=== PATIENT | female | born 1955 | race Caucasian/White ===

== ENCOUNTER → 2018-06-27 15:26 | Outpatient (CLI) | payer OTHER, SELFPAY ==
--- NOTE | 2018-06-27 15:29 | DI.RAD.S_ITS ---
PROCEDURE: XR FOOT LT MIN 3V INDICATIONS: Lt foot pain TECHNIQUE: 3 views of the foot were acquired. COMPARISON: None. FINDINGS: Bones: No fractures or dislocations. No suspicious bony lesions. Soft tissues: No tibiotalar joint effusion. Achilles tendon appears normal. IMPRESSION: No trauma found. Source of current symptoms is not seen. Dictated by: Isaac Anderson M.D. on 06/27/2018 at 16:04 Approved by: Isaac Anderson M.D. on 06/27/2018 at 16:05
== END ==
PROVIDERS: Visit Provider Physician Assistant
DX: M79.672 Pain in left foot (principal)
CPT/HCPCS: 73630

== ENCOUNTER → 2020-01-12 10:48 | Outpatient (CLI) | payer OTHER, SELFPAY ==
[2020-01-12 11:57] LABS: Add Manual Diff / Slide Review NO; Basophils Absolute Auto 100 /uL (0-100); Basophils Percent Auto 0.9 % (0-2); Eosinophils Absolute Auto 200 /uL (0-450); Eosinophils Percent Auto 4.2 % (2-4); Hematocrit 41.6 % (36-46); Hemoglobin 14.5 g/dL (12.0-16.0); Lymphocytes Absolute Auto 1200 /uL (1100-4500); Mean Corpuscular HGB Conc 34.9 % (30-36); Mean Corpuscular Hemoglobin 31.6 PG (26-34); Mean Corpuscular Volume 90.8 fL (80-100); Monocytes Absolute Auto 500 /uL (0-900); Monocytes Percent Auto 9.3 % (3-14); Neutrophils Absolute Auto 3700 /uL (1500-7000); Neutrophils Percent Auto 64.6 % (50-75); Platelet Count 305 X10^3/uL (150-400); Red Blood Cell Count 4.58 X10^6/uL (4.0-5.2); Red Cell Distribution Width 12.9 % (11.6-14.8); White Blood Cell Count 5.8 X10^3/uL (4.5-11.0)
[2020-01-12 12:04] LABS: BUN Creatinine Ratio 25.7 (6-22); Blood Urea Nitrogen 18 mg/dL (7-17); Calcium 9.7 mg/dL (8.4-10.2); Carbon Dioxide 30 mmol/L (22-32); Chloride 103 mmol/L (98-107); Estimated Glomerular Filt Rate > 60.0 mL/min (>60); Glucose 95 mg/dL (80-110); HEMOLYSIS < 15 (0-50); Potassium 4.3 mmol/L (3.4-5.1); Sodium 140 mmol/L (137-145)
== END ==
PROVIDERS: PCP Family Medicine; Referring Provider Surgery; Visit Provider Surgery
DX: K57.92 Diverticulitis of intestine, part unspecified, without perforation or abscess without bleeding (principal)
CPT/HCPCS: 36415; 80048; 85025

== ENCOUNTER → 2020-01-19 09:54 | Outpatient (CLI) | payer OTHER, SELFPAY ==
--- NOTE | 2020-01-19 09:55 | DI.CT.S_ITS ---
PROCEDURE: CT ABDOMEN PELVIS W CON INDICATIONS: rule out diverticulitis TECHNIQUE: After the administration of intravenous contrast, 5 mm thick sections acquired from the diaphragm to the symphysis. 5 mm coronal and sagittal reformats were acquired. For radiation dose reduction, the following was used: automated exposure control, adjustment of mA and/or kV according to patient size. COMPARISON: [facility], RG, CT ABDOMEN/PELVIS WITH CONTRAST, 12/01/2019, 17:32. FINDINGS: Image quality: Excellent. ABDOMEN: Lung bases: Lung bases are clear. Heart size is normal. Solid organs: Liver is normal in size and enhancement. Gallbladder is surgically absent. Biliary system is mildly dilated. Pancreas enhances normally. Spleen is normal in size and enhancement. No adrenal nodules. Kidneys demonstrate normal size and enhancement, without hydronephrosis. Peritoneum and bowel: There are scattered colonic diverticula in descending and sigmoid colon. Bowel loops demonstrate normal wall thickness and caliber. No free fluid or air. Nodes and vessels: No retroperitoneal or mesenteric adenopathy by size criteria. Aorta and inferior vena cava are normal in size. Miscellaneous: No ventral hernias. PELVIS: Genitourinary: Bladder wall thickness is normal. Uterus is normal. No adnexal mass. Miscellaneous: No inguinal hernias or adenopathy. Bones: No suspicious bony lesions. No vertebral body compression fractures. IMPRESSION: 1. Diverticulosis without acute diverticulitis. 2. Mild intrahepatic biliary dilation is probably related to cholecystectomy. Please correlate with serum bilirubin. Dictated by: Jared Galindo M.D. on 01/19/2020 at 14:42 Approved by: Jared Galindo M.D. on 01/19/2020 at 18:49
== END ==
PROVIDERS: PCP Family Medicine; Referring Provider Family Medicine; Visit Provider Surgery
DX: K57.30 Diverticulosis of large intestine without perforation or abscess without bleeding (principal); Z90.49 Acquired absence of other specified parts of digestive tract
CPT/HCPCS: 74177; Q9967

== ENCOUNTER 2022-09-06 23:27 | Emergency (ER) | payer MEDICARE, OTHER, SELFPAY ==
[2022-09-06 23:41] VITALS: BP 164/75; PULSE 88; RESP 22; TEMP 37.2; O2SAT 95; BMI 21.5
[2022-09-06 23:46] VITALS: PULSE 81; O2SAT 96
[2022-09-07] VITALS (131 sets, daily range): BP systolic 85–125; BP diastolic 46–60; PULSE 70–108; RESP 13–40; O2SAT 91–99
[2022-09-07] LABS: Add Manual Diff / Slide Review NO; Basophils Absolute Auto 0 /uL (0-100); Basophils Percent Auto 0.3 % (0-2); Eosinophils Absolute Auto 100 /uL (0-450); Eosinophils Percent Auto 0.8 % (2-4); Hematocrit 40.2 % (36-46); Hemoglobin 14.2 g/dL (12.0-16.0); Lymphocytes Absolute Auto 1200 /uL (1100-4500); Lymphocytes Percent Auto 13.2 % (25-40); Mean Corpuscular HGB Conc 35.5 % (30-36); Mean Corpuscular Volume 90.1 fL (80-100); Monocytes Absolute Auto 1000 /uL (0-900); Neutrophils Absolute Auto 6900 /uL (1500-7000); Neutrophils Percent Auto 74.7 % (50-75); Platelet Count 247 X10^3/uL (150-400); Red Blood Cell Count 4.46 X10^6/uL (4.0-5.2); Red Cell Distribution Width 12.7 % (11.6-14.8); White Blood Cell Count 9.3 X10^3/uL (4.5-11.0)
[2022-09-07 00:05] LABS: Alanine Aminotransferase 46 IU/L (<35); Albumin 4.2 g/dL (3.5-5.0); Albumin Globulin Ratio 1.4 (1.0-2.8); Alkaline Phosphatase 111 U/L (38-126); Aspartate Aminotransferase 47 IU/L (14-36); BUN Creatinine Ratio 13.3 (6-22); Bilirubin Total 0.5 mg/dL (0.2-1.3); Blood Urea Nitrogen 10 mg/dL (7-17); Calcium 8.8 mg/dL (8.4-10.2); Carbon Dioxide 26 mmol/L (22-32); Chloride 101 mmol/L (98-107); Estimated Glomerular Filt Rate > 60 mL/min (>60); Globulin 3.1 g/dL (1.7-4.1); Glucose 103 mg/dL (80-110); HEMOLYSIS 24 (0-50); Lipase 80 U/L (23-300); Potassium 4.2 mmol/L (3.4-5.1); Sodium 135 mmol/L (137-145); Total Protein 7.3 g/dL (6.3-8.2)
--- NOTE | 2022-09-07 00:21 | ED_ITS ---
HPI - General Adult <Apryl Lara MD - Last Filed: 09/07/22 05:39> General Chief complaint: Abdominal Pain Stated complaint: Lower abd. pain Time Seen by Provider: 09/06/22 23:56 Source: patient Mode of arrival: Ambulatory History of Present Illness HPI narrative: 67-year-old woman with a history of pacer defibrillator, episodes of ventricular tachycardia for which she is shocked or paced out of, scheduled for a stress test later next week presents complaining of lower abdominal pain. She notes that on the she had an extra-strength flu shot and felt somewhat achy and unwell for approximately 24 hours. Was doing well on the by the was complaining of general malaise, body aches increasing lower abdominal pain and difficulty in starting her urine stream. No back pain chest pain, cough, palpitations. She does not describe overt nausea or vomiting, she had diarrhea on the but that has not continued, no constipation. She notes that she has had 2 episodes of diverticulitis in the past and this does feel somewhat similar. She is not complaining of flank pain, dysuria or frequency. Related Data Home Medications Medication Instructions Recorded Confirmed cholecalciferol (vitamin D3) 100 8,000 unit PO DAILY 01/12/20 01/12/20 mcg (4,000 unit) capsule vitamin B complex 1 tab PO DAILY 01/12/20 01/12/20 Previous Rx's Medication Instructions Recorded ciprofloxacin HCl 500 mg tablet 500 mg PO Q12H diverticulitis #28 01/13/20 (Cipro) tabs metronidazole 500 mg tablet 500 mg PO Q8H diverticulitis #42 01/13/20 (Flagyl) tabs ondansetron 4 mg disintegrating 4 mg PO Q4H PRN nausea and 01/25/20 tablet vomiting #30 tabs Allergies Allergy/AdvReac Type Severity Reaction Status Date / Time Iodinated Contrast Media Allergy Severe questionable Verified 09/07/22 08:53 anaphylaxis, chest pain, v tach Sulfa (Sulfonamide Allergy Intermediate rash Verified 09/07/22 05:09 Antibiotics) [SULFA (SULFONAMIDE ANTIBIOTICS)] Review of Systems <Apryl Lara MD - Last Filed: 09/07/22 05:39> Review of Systems Narrative: Remainder of complete review of systems is otherwise unremarkable except for that included in the HPI. Patient History <Apryl Lara MD - Last Filed: 09/07/22 05:39> Social History Smoking Status: Never smoker alcohol intake: current (1 glass of wine or 2 per week) substance use type: does not use Smoking Status: Never smoker alcohol intake frequency: holidays/special occasions only Substance Use Type: does not use Exam <Apryl Lara MD - Last Filed: 09/07/22 05:39> Initial Vital Signs Initial Vital Signs: Vital Signs Temperature 98.9 F 09/06/22 23:41 Pulse Rate 88 09/06/22 23:41 Respiratory Rate 22 09/06/22 23:41 Blood Pressure 164/75 H 09/06/22 23:41 Pulse Oximetry 95 09/06/22 23:41 Oxygen Delivery Method 09/06/22 23:41 General: Healthy appearing, in no acute distress. Able to give a complete and coherent history. Well-nourished well-developed HEENT: Moist mucous membranes, normal sclera with reactive pupils, Neck: No JVD, supple Respiratory: Lungs are clear to auscultation, no wheezing no rales no rhonchi. Full and symmetrical air movement Cardiac: Regular rate and rhythm no murmurs no bruits Abdomen: Soft, tender in the entire lower abdomen without rebound or guarding. Good bowel tones, no flank pain Skin: Warm and dry, no rashes Neurologic: Grossly neurologically intact with no obvious asymmetries or abnormalities Extremities: No trauma, well perfused Psych: Cooperative, appropriate insight and affect Bedside ultrasound shows bladder volume currently at less than 20 cc <Gail Hassan DO - Last Filed: 09/07/22 19:24> Initial Vital Signs Initial Vital Signs: Vital Signs Temperature 98.9 F 09/06/22 23:41 Pulse Rate 88 09/06/22 23:41 Respiratory Rate 22 09/06/22 23:41 Blood Pressure 164/75 H 09/06/22 23:41 Pulse Oximetry 95 09/06/22 23:41 Oxygen Delivery Method 09/06/22 23:41 Procedures <Apryl Lara MD - Last Filed: 09/07/22 05:39> Central Line Placement Right IJ: Time of procedure: 04:34 Patient Placed on Monitor/Pulse Ox: Yes Prep: mask, gown, gloves and other Central Line Prep: Chlorhexidine scrub Local Anesthetic: lidocaine 1% Amount of anesthesia used (mL): 3 Ultrasound Used for Placement: Yes Central Line Lumen Inserted: triple Post Procedure: sutured in place, good blood return, all ports aspirated, flushed, capped and sterile dressing applied Post Procedure X-Ray: tip of catheter in good position and no pneumothorax seen Patient Tolerated Procedure: Well Complications: none Course <Apryl Lara MD - Last Filed: 09/07/22 05:39> Orders Ordered: Discontinued Medications Diphenhydramine HCl (Diphenhydramine 50 Mg/Ml Vial) 25 mg IV NOW ONE Stop: 09/07/22 01:36 Last Admin: 09/07/22 01:43 Dose: 25 mg Documented By: GILBERT Famotidine (Famotidine 20 Mg/2 Ml Vial) 20 mg IV NOW ONE Stop: 09/07/22 01:36 Last Admin: 09/07/22 01:44 Dose: 20 mg Documented By: GILBERT Heparin Sodium (Porcine) (Heparin 5,000 Unit/Ml Vial) 4,000 unit IV NOW ONE Stop: 09/07/22 05:16 Last Admin: 09/07/22 05:28 Dose: 4,000 unit Documented By: AMANDA Hydromorphone HCl (Hydromorphone 0.5 Mg Inj) 0.5 mg IV Q15MIN PRN PRN Reason: Pain, Last Admin: 09/07/22 00:38 Dose: 0.5 mg Documented By: ARIS Sodium Chloride (Normal Saline 0.9%) 1,000 mls @ 1,000 mls/hr IV BOLUS ONE Stop: 09/07/22 01:30 Last Infusion: 09/07/22 03:07 Dose: 0 mls/hr Documented By: Admin: 09/07/22 00:39 Dose: 1,000 mls/hr Documented By: ARIS Sodium Chloride (Normal Saline 0.9%) 1,000 mls @ 1,000 mls/hr IV BOLUS ONE Stop: 09/07/22 02:34 Last Infusion: 09/07/22 02:51 Dose: 0 mls/hr Documented By: Admin: 09/07/22 01:58 Dose: 1,000 mls/hr Documented By: ARIS Sodium Chloride (Normal Saline 0.9%) 1,000 mls @ 150 mls/hr IV CONT DIAN Last Infusion: 09/07/22 09:30 Dose: 150 mls/hr Documented By: Admin: 09/07/22 08:50 Dose: 150 mls/hr Documented By: Infusion: 09/07/22 08:50 Dose: 150 mls/hr Documented By: Infusion: 09/07/22 06:49 Dose: 150 mls/hr Documented By: Admin: 09/07/22 02:13 Dose: 150 mls/hr Documented By: ARIS Amiodarone HCl/Dextrose (Nexterone) 150 mg in 100 mls @ 600 mls/hr IV NOW ONE; Protocol Stop: 09/07/22 02:06 Last Infusion: 09/07/22 02:15 Dose: 0 mls/hr Documented By: Admin: 09/07/22 02:02 Dose: 600 mls/hr Documented By: ARIS Amiodarone HCl/Dextrose (Nexterone) 360 mg in 200 mls @ 33.333 mls/hr IV NOW ONE; Protocol Stop: 09/07/22 07:56 Last Titration: 09/07/22 08:17 Dose: 0 mls/hr, 0 mls/hr Documented By: Admin: 09/07/22 02:16 Dose: 33.333 mls/hr, 33.33 mls/hr Documented By: ARIS Amiodarone HCl/Dextrose (Nexterone) 540 mg in 300 mls @ 16.7 mls/hr IV CONT DIAN; Protocol Stop: 09/07/22 19:58 Last Admin: 09/07/22 03:09 Dose: Not Given Documented By: GILBERT Amiodarone HCl/Dextrose (Nexterone) 360 mg in 200 mls @ 16.7 mls/hr IV CONT DIAN; Protocol Stop: 09/07/22 14:29 Last Titration: 09/07/22 09:30 Dose: 16.7 mls/hr, 16.7 mls/hr Documented By: Admin: 09/07/22 08:37 Dose: 16.7 mls/hr, 16.7 mls/hr Documented By: JAIRON Epinephrine HCl 4 mg/ Dextrose 250 mls @ 3.75 mls/hr IV TITRATE DIAN; Protocol Last Titration: 09/07/22 08:30 Dose: 0 mcg/min, 0 mls/hr Documented By: Titration: 09/07/22 07:20 Dose: 10 mcg/min, 37.5 mls/hr Documented By: Titration: 09/07/22 06:23 Dose: 7 mcg/min, 26.25 mls/hr Documented By: Titration: 09/07/22 05:09 Dose: 5 mcg/min, 18.75 mls/hr Documented By: Titration: 09/07/22 05:06 Dose: 4 mcg/min, 15 mls/hr Documented By: Titration: 09/07/22 04:54 Dose: 3 mcg/min, 11.25 mls/hr Documented By: Titration: 09/07/22 04:07 Dose: 2 mcg/min, 7.5 mls/hr Documented By: Admin: 09/07/22 03:44 Dose: 1 mcg/min, 3.75 mls/hr Documented By: AMANDA Ceftriaxone Sodium 2,000 mg/ (Sodium Chloride) 100 mls @ 200 mls/hr IV NOW ONE Stop: 09/07/22 05:16 Last Infusion: 09/07/22 06:39 Dose: 0 mls/hr Documented By: Admin: 09/07/22 05:23 Dose: 200 mls/hr Documented By: AMANDA Heparin Sodium/Dextrose (Heparin Drip) 25,000 unit in 500 mls @ 12.846 mls/hr IV CONT DIAN; Protocol Last Titration: 09/07/22 09:30 Dose: 12 units/kg/hr, 12.846 mls/hr Documented By: Admin: 09/07/22 05:29 Dose: 12 units/kg/hr, 12.846 mls/hr Documented By: AMANDA Sodium Chloride (Normal Saline 0.9%) 1,000 mls @ 150 mls/hr IV CONT DIAN Last Admin: 09/07/22 06:50 Dose: Not Given Documented By: AMANDA Phenylephrine HCl 20,000 mcg/ (Dextrose) 250 mls @ 75 mls/hr IV TITRATE DIAN; Protocol Last Titration: 09/07/22 09:30 Dose: 60 mcg/min, 45 mls/hr Documented By: Titration: 09/07/22 08:55 Dose: 60 mcg/min, 45 mls/hr Documented By: Admin: 09/07/22 08:30 Dose: 100 mcg/min, 75 mls/hr Documented By: JAIRON Metronidazole (Flagyl) 500 mg in 100 mls @ 100 mls/hr IV NOW ONE Stop: 09/07/22 08:50 Last Infusion: 09/07/22 09:30 Dose: 100 mls/hr Documented By: Admin: 09/07/22 08:40 Dose: 100 mls/hr Documented By: JAIRON Methylprednisolone (Methylprednisolone 125 Mg/2 Ml Vial) 125 mg IV NOW ONE Stop: 09/07/22 01:36 Last Admin: 09/07/22 01:41 Dose: 125 mg Documented By: GILBERT Morphine Sulfate (Morphine 2 Mg/Ml Inj) 2 mg IV Q2HR PRN PRN Reason: Pain, Moderate (4-6) Last Admin: 09/07/22 05:15 Dose: 2 mg Documented By: AMANDA Nitroglycerin (Nitroglycerin 0.4 Mg Sl Tab) 0.4 mg SL [id number] PRN PRN Reason: Pain, Severe (7-10) Ondansetron HCl (Ondansetron 4 Mg/2 Ml Inj) 4 mg IV NOW ONE Stop: 09/07/22 00:32 Last Admin: 09/07/22 00:38 Dose: 4 mg Documented By: ARIS Vital Signs Vital signs: Vital Signs - 8 hr 09/07/22 01:56 09/07/22 01:10 09/07/22 01:15 Pulse Rate 83 89 85 Respiratory Rate 17 20 Blood Pressure 110/53 L Pulse Oximetry 92 Oxygen Delivery Method Oxygen Flow Rate 09/07/22 01:20 09/07/22 01:25 09/07/22 01:30 Pulse Rate 84 96 H 105 H Respiratory Rate 22 26 H 27 H Blood Pressure Pulse Oximetry 95 96 Oxygen Delivery Method Oxygen Flow Rate 09/07/22 01:35 09/07/22 01:38 09/07/22 01:38 Pulse Rate 102 H 83 Respiratory Rate 40 H 25 H Blood Pressure 108/58 L Pulse Oximetry 97 98 Oxygen Delivery Method Oxygen Flow Rate 09/07/22 01:40 09/07/22 01:45 09/07/22 01:45 Pulse Rate 83 85 Respiratory Rate 30 H 33 H Blood Pressure 125/57 L Pulse Oximetry 97 94 Oxygen Delivery Method Oxygen Flow Rate 09/07/22 01:50 09/07/22 01:53 09/07/22 01:53 Pulse Rate 82 82 Respiratory Rate 27 H 33 H Blood Pressure 110/53 L Pulse Oximetry 94 96 Oxygen Delivery Method Oxygen Flow Rate 09/07/22 01:55 09/07/22 02:00 09/07/22 02:00 Pulse Rate 83 85 Respiratory Rate 26 H 26 H Blood Pressure 104/58 L Pulse Oximetry 96 92 Oxygen Delivery Method Oxygen Flow Rate 09/07/22 02:05 09/07/22 02:05 09/07/22 02:10 Pulse Rate 85 Respiratory Rate 24 Blood Pressure 108/56 L 100/57 L Pulse Oximetry 91 Oxygen Delivery Method Nasal Cannula Oxygen Flow Rate 2 09/07/22 02:10 09/07/22 02:14 09/07/22 02:14 Pulse Rate 84 80 Respiratory Rate 19 18 Blood Pressure 92/55 L Pulse Oximetry 96 97 Oxygen Delivery Method Oxygen Flow Rate 09/07/22 02:15 09/07/22 02:15 09/07/22 02:20 Pulse Rate 81 Respiratory Rate 22 Blood Pressure 93/52 L 91/55 L Pulse Oximetry 97 Oxygen Delivery Method Oxygen Flow Rate 09/07/22 02:20 09/07/22 02:25 09/07/22 02:25 Pulse Rate 75 74 Respiratory Rate 18 17 Blood Pressure 91/53 L Pulse Oximetry 96 97 Oxygen Delivery Method Oxygen Flow Rate 09/07/22 02:30 09/07/22 02:30 09/07/22 02:35 Pulse Rate 76 Respiratory Rate 19 Blood Pressure 91/51 L 90/50 L Pulse Oximetry 97 Oxygen Delivery Method Oxygen Flow Rate 09/07/22 02:35 09/07/22 02:40 09/07/22 02:40 Pulse Rate 75 79 Respiratory Rate 17 21 Blood Pressure 88/53 L Pulse Oximetry 97 97 Oxygen Delivery Method Nasal Cannula Oxygen Flow Rate 2 09/07/22 02:45 09/07/22 02:45 09/07/22 02:50 Pulse Rate 76 Respiratory Rate 18 Blood Pressure 89/53 L 92/50 L Pulse Oximetry 97 Oxygen Delivery Method Oxygen Flow Rate 09/07/22 02:50 09/07/22 02:55 09/07/22 02:55 Pulse Rate 76 77 Respiratory Rate 17 24 Blood Pressure 98/57 L Pulse Oximetry 98 98 Oxygen Delivery Method Oxygen Flow Rate 09/07/22 03:00 09/07/22 03:00 09/07/22 03:05 Pulse Rate 108 H Respiratory Rate Blood Pressure 99/56 L 99/56 L Pulse Oximetry Oxygen Delivery Method Oxygen Flow Rate 09/07/22 03:05 09/07/22 03:10 09/07/22 03:10 Pulse Rate 91 H 85 Respiratory Rate 20 18 Blood Pressure 96/53 L Pulse Oximetry 99 98 Oxygen Delivery Method Oxygen Flow Rate 09/07/22 03:15 09/07/22 03:15 09/07/22 03:20 Pulse Rate 84 Respiratory Rate 18 Blood Pressure 92/52 L 86/50 L Pulse Oximetry 98 Oxygen Delivery Method Oxygen Flow Rate 09/07/22 03:20 09/07/22 03:21 09/07/22 03:21 Pulse Rate 86 85 Respiratory Rate 19 18 Blood Pressure 88/52 L Pulse Oximetry 97 98 Oxygen Delivery Method Nasal Cannula Oxygen Flow Rate 2 09/07/22 03:25 09/07/22 03:25 09/07/22 03:30 Pulse Rate 86 Respiratory Rate 19 Blood Pressure 93/51 L 88/49 L Pulse Oximetry 98 Oxygen Delivery Method Oxygen Flow Rate 09/07/22 03:30 09/07/22 03:33 09/07/22 03:33 Pulse Rate 83 81 Respiratory Rate 19 20 Blood Pressure 88/50 L Pulse Oximetry 97 98 Oxygen Delivery Method Oxygen Flow Rate 09/07/22 03:35 09/07/22 03:35 09/07/22 03:40 Pulse Rate 80 Respiratory Rate 18 Blood Pressure 89/51 L 90/51 L Pulse Oximetry 98 Oxygen Delivery Method Oxygen Flow Rate 09/07/22 03:40 09/07/22 03:45 09/07/22 03:45 Pulse Rate 81 78 Respiratory Rate 23 23 Blood Pressure 89/53 L Pulse Oximetry 98 97 Oxygen Delivery Method Oxygen Flow Rate 09/07/22 03:50 09/07/22 03:50 09/07/22 03:53 Pulse Rate 78 Respiratory Rate 18 Blood Pressure 87/53 L 99/58 L Pulse Oximetry 97 Oxygen Delivery Method Oxygen Flow Rate 09/07/22 03:53 09/07/22 03:55 09/07/22 03:57 Pulse Rate 86 81 80 Respiratory Rate 20 25 H Blood Pressure Pulse Oximetry 96 93 96 Oxygen Delivery Method Oxygen Flow Rate 09/07/22 03:57 09/07/22 04:00 09/07/22 04:01 Pulse Rate 79 78 Respiratory Rate 25 H 23 Blood Pressure 88/50 L Pulse Oximetry 97 97 Oxygen Delivery Method Oxygen Flow Rate 09/07/22 04:01 09/07/22 04:05 09/07/22 04:10 Pulse Rate 75 76 Respiratory Rate 16 17 Blood Pressure 87/51 L Pulse Oximetry 96 97 Oxygen Delivery Method Oxygen Flow Rate 09/07/22 04:15 09/07/22 04:16 09/07/22 04:16 Pulse Rate 82 82 Respiratory Rate 23 20 Blood Pressure 91/55 L Pulse Oximetry 98 98 Oxygen Delivery Method Oxygen Flow Rate 09/07/22 04:20 09/07/22 04:20 09/07/22 04:25 Pulse Rate 85 Respiratory Rate 23 Blood Pressure 90/53 L 93/52 L Pulse Oximetry 98 Oxygen Delivery Method Oxygen Flow Rate 09/07/22 04:25 09/07/22 04:28 09/07/22 04:28 Pulse Rate 84 84 Respiratory Rate 23 22 Blood Pressure 96/54 L Pulse Oximetry 97 97 Oxygen Delivery Method Oxygen Flow Rate 09/07/22 04:30 09/07/22 04:30 09/07/22 04:35 Pulse Rate 83 Respiratory Rate 22 Blood Pressure 95/51 L 92/51 L Pulse Oximetry 96 Oxygen Delivery Method Oxygen Flow Rate 09/07/22 04:35 09/07/22 04:37 09/07/22 04:37 Pulse Rate 82 83 Respiratory Rate 19 24 Blood Pressure 91/53 L Pulse Oximetry 96 97 Oxygen Delivery Method Oxygen Flow Rate 09/07/22 04:40 09/07/22 04:40 09/07/22 04:45 Pulse Rate 86 Respiratory Rate 35 H Blood Pressure 93/52 L 91/50 L Pulse Oximetry 97 Oxygen Delivery Method Oxygen Flow Rate 09/07/22 04:45 09/07/22 04:50 09/07/22 04:50 Pulse Rate 80 80 Respiratory Rate 15 21 Blood Pressure 88/50 L Pulse Oximetry 97 96 Oxygen Delivery Method Oxygen Flow Rate 09/07/22 04:55 09/07/22 04:55 09/07/22 05:00 Pulse Rate 79 Respiratory Rate 17 Blood Pressure 86/50 L 87/49 L Pulse Oximetry 96 Oxygen Delivery Method Oxygen Flow Rate 09/07/22 05:00 09/07/22 05:05 09/07/22 05:05 Pulse Rate 81 82 Respiratory Rate 17 21 Blood Pressure 88/48 L Pulse Oximetry 97 97 Oxygen Delivery Method Oxygen Flow Rate 09/07/22 05:09 09/07/22 05:09 09/07/22 05:10 Pulse Rate 82 Respiratory Rate 16 Blood Pressure 91/51 L 88/47 L Pulse Oximetry 97 Oxygen Delivery Method Oxygen Flow Rate 09/07/22 05:10 09/07/22 05:15 09/07/22 05:15 Pulse Rate 82 87 Respiratory Rate 17 20 Blood Pressure 92/49 L Pulse Oximetry 97 97 Oxygen Delivery Method Oxygen Flow Rate 09/07/22 05:20 09/07/22 05:20 09/07/22 05:25 Pulse Rate 85 Respiratory Rate 16 Blood Pressure 93/50 L 91/47 L Pulse Oximetry 96 Oxygen Delivery Method Oxygen Flow Rate 09/07/22 05:25 09/07/22 05:30 09/07/22 05:30 Pulse Rate 85 87 Respiratory Rate 17 18 Blood Pressure 94/53 L Pulse Oximetry 96 96 Oxygen Delivery Method Oxygen Flow Rate 09/07/22 05:35 09/07/22 05:35 09/07/22 05:40 Pulse Rate 88 Respiratory Rate 18 Blood Pressure 95/51 L 92/46 L Pulse Oximetry 97 Oxygen Delivery Method Oxygen Flow Rate 09/07/22 05:40 09/07/22 05:45 09/07/22 05:45 Pulse Rate 87 91 H Respiratory Rate 17 20 Blood Pressure 96/51 L Pulse Oximetry 97 97 Oxygen Delivery Method Oxygen Flow Rate 09/07/22 05:50 09/07/22 05:50 09/07/22 05:55 Pulse Rate 91 H Respiratory Rate 22 Blood Pressure 100/52 L 103/55 L Pulse Oximetry 97 Oxygen Delivery Method Oxygen Flow Rate 09/07/22 05:55 09/07/22 06:00 09/07/22 06:00 Pulse Rate 88 87 Respiratory Rate 16 17 Blood Pressure 99/51 L Pulse Oximetry 97 96 Oxygen Delivery Method Oxygen Flow Rate 09/07/22 06:05 09/07/22 06:05 09/07/22 06:10 Pulse Rate 89 Respiratory Rate 16 Blood Pressure 100/53 L 103/51 L Pulse Oximetry 96 Oxygen Delivery Method Oxygen Flow Rate 09/07/22 06:10 09/07/22 06:15 09/07/22 06:15 Pulse Rate 93 H 88 Respiratory Rate 23 16 Blood Pressure 96/51 L Pulse Oximetry 96 95 Oxygen Delivery Method Oxygen Flow Rate 09/07/22 06:20 09/07/22 06:20 09/07/22 06:25 Pulse Rate 88 Respiratory Rate 17 Blood Pressure 97/49 L 97/50 L Pulse Oximetry 96 Oxygen Delivery Method Oxygen Flow Rate 09/07/22 06:25 09/07/22 06:30 09/07/22 06:30 Pulse Rate 90 93 H Respiratory Rate 16 17 Blood Pressure 101/53 L Pulse Oximetry 95 96 Oxygen Delivery Method Oxygen Flow Rate 09/07/22 06:35 09/07/22 06:35 09/07/22 06:40 Pulse Rate 95 H Respiratory Rate 17 Blood Pressure 106/52 L 99/51 L Pulse Oximetry 95 Oxygen Delivery Method Oxygen Flow Rate 09/07/22 06:40 09/07/22 06:45 09/07/22 06:45 Pulse Rate 91 H 91 H Respiratory Rate 16 14 Blood Pressure 101/53 L Pulse Oximetry 95 94 Oxygen Delivery Method Oxygen Flow Rate 09/07/22 06:50 09/07/22 06:50 09/07/22 06:55 Pulse Rate 93 H Respiratory Rate 13 Blood Pressure 103/53 L 101/52 L Pulse Oximetry 95 Oxygen Delivery Method Oxygen Flow Rate 09/07/22 06:55 09/07/22 07:00 09/07/22 07:00 Pulse Rate 91 H 94 H Respiratory Rate 16 23 Blood Pressure 97/51 L Pulse Oximetry 95 95 Oxygen Delivery Method Oxygen Flow Rate 09/07/22 08:18 09/07/22 07:05 09/07/22 07:05 Pulse Rate 97 H 91 H Respiratory Rate 19 21 Blood Pressure 118/56 L 93/50 L Pulse Oximetry 96 97 Oxygen Delivery Method Room Air Nasal Cannula Oxygen Flow Rate 2 09/07/22 07:10 09/07/22 07:10 09/07/22 07:15 Pulse Rate 90 Respiratory Rate 19 Blood Pressure 94/47 L 86/48 L Pulse Oximetry 96 Oxygen Delivery Method Oxygen Flow Rate 09/07/22 07:15 09/07/22 07:17 09/07/22 07:17 Pulse Rate 88 90 Respiratory Rate 20 21 Blood Pressure 93/49 L Pulse Oximetry 96 96 Oxygen Delivery Method Nasal Cannula Oxygen Flow Rate 2 09/07/22 07:20 09/07/22 07:20 09/07/22 07:25 Pulse Rate 92 H Respiratory Rate 17 Blood Pressure 100/51 L 112/50 L Pulse Oximetry 96 Oxygen Delivery Method Oxygen Flow Rate 09/07/22 07:25 09/07/22 07:30 09/07/22 07:30 Pulse Rate 98 H 94 H Respiratory Rate 24 18 Blood Pressure 105/52 L Pulse Oximetry 97 96 Oxygen Delivery Method Nasal Cannula Oxygen Flow Rate 2 09/07/22 07:35 09/07/22 07:35 09/07/22 07:40 Pulse Rate 92 H Respiratory Rate 20 Blood Pressure 105/52 L 105/52 L Pulse Oximetry 95 Oxygen Delivery Method Oxygen Flow Rate 09/07/22 07:40 09/07/22 07:45 09/07/22 07:45 Pulse Rate 94 H 93 H Respiratory Rate 18 22 Blood Pressure 104/51 L Pulse Oximetry 96 96 Oxygen Delivery Method Oxygen Flow Rate 09/07/22 07:50 09/07/22 07:50 09/07/22 07:55 Pulse Rate 93 H Respiratory Rate 20 Blood Pressure 101/51 L 98/50 L Pulse Oximetry 96 Oxygen Delivery Method Nasal Cannula Oxygen Flow Rate 2 09/07/22 07:55 09/07/22 08:00 09/07/22 08:00 Pulse Rate 89 90 Respiratory Rate 17 16 Blood Pressure 102/51 L Pulse Oximetry 95 94 Oxygen Delivery Method Oxygen Flow Rate 09/07/22 08:05 09/07/22 08:10 09/07/22 08:14 Pulse Rate 99 H 95 H 101 H Respiratory Rate 20 19 19 Blood Pressure Pulse Oximetry 94 Oxygen Delivery Method Oxygen Flow Rate 09/07/22 08:14 09/07/22 08:15 09/07/22 08:15 Pulse Rate 100 H Respiratory Rate 21 Blood Pressure 124/60 118/56 L Pulse Oximetry 96 Oxygen Delivery Method Nasal Cannula Oxygen Flow Rate 2 09/07/22 08:20 09/07/22 08:20 09/07/22 08:25 Pulse Rate 93 H Respiratory Rate 18 Blood Pressure 113/52 L 101/49 L Pulse Oximetry 95 Oxygen Delivery Method Oxygen Flow Rate 09/07/22 08:25 09/07/22 08:30 09/07/22 08:30 Pulse Rate 92 H 90 Respiratory Rate 21 21 Blood Pressure 101/51 L Pulse Oximetry 94 94 Oxygen Delivery Method Oxygen Flow Rate 09/07/22 08:33 09/07/22 08:33 09/07/22 08:34 Pulse Rate 95 H 91 H Respiratory Rate 19 21 Blood Pressure 94/47 L Pulse Oximetry 95 95 Oxygen Delivery Method Oxygen Flow Rate 09/07/22 08:34 09/07/22 08:35 09/07/22 08:36 Pulse Rate 90 86 Respiratory Rate 22 17 Blood Pressure 85/47 L Pulse Oximetry 94 92 Oxygen Delivery Method Oxygen Flow Rate 09/07/22 08:36 09/07/22 08:38 09/07/22 08:38 Pulse Rate 82 Respiratory Rate 19 Blood Pressure 89/49 L 95/51 L Pulse Oximetry 91 Oxygen Delivery Method Oxygen Flow Rate 09/07/22 08:39 09/07/22 08:39 09/07/22 08:40 Pulse Rate 84 81 Respiratory Rate 20 21 Blood Pressure 87/51 L Pulse Oximetry 94 92 Oxygen Delivery Method Oxygen Flow Rate 09/07/22 08:41 09/07/22 08:41 09/07/22 08:42 Pulse Rate 81 80 Respiratory Rate 21 21 Blood Pressure 99/51 L Pulse Oximetry 93 94 Oxygen Delivery Method Oxygen Flow Rate 09/07/22 08:42 09/07/22 08:45 09/07/22 08:45 Pulse Rate 77 Respiratory Rate 18 Blood Pressure 105/52 L 107/54 L Pulse Oximetry 92 Oxygen Delivery Method Oxygen Flow Rate 09/07/22 08:48 09/07/22 08:48 09/07/22 08:50 Pulse Rate 74 73 Respiratory Rate 21 20 Blood Pressure 114/60 Pulse Oximetry 92 93 Oxygen Delivery Method Oxygen Flow Rate 09/07/22 08:51 09/07/22 08:51 09/07/22 08:54 Pulse Rate 71 72 Respiratory Rate 18 19 Blood Pressure 116/55 L Pulse Oximetry 94 96 Oxygen Delivery Method Oxygen Flow Rate 09/07/22 08:54 09/07/22 08:55 Pulse Rate 70 Respiratory Rate 18 Blood Pressure 120/56 L Pulse Oximetry 96 Oxygen Delivery Method Oxygen Flow Rate <Gail Hassan DO - Jaquan Filed: 09/07/22 19:24> Orders Ordered: Discontinued Medications Diphenhydramine HCl (Diphenhydramine 50 Mg/Ml Vial) 25 mg IV NOW ONE Stop: 09/07/22 01:36 Last Admin: 09/07/22 01:43 Dose: 25 mg Documented By: GILBERT Famotidine (Famotidine 20 Mg/2 Ml Vial) 20 mg IV NOW ONE Stop: 09/07/22 01:36 Last Admin: 09/07/22 01:44 Dose: 20 mg Documented By: GILBERT Heparin Sodium (Porcine) (Heparin 5,000 Unit/Ml Vial) 4,000 unit IV NOW ONE Stop: 09/07/22 05:16 Last Admin: 09/07/22 05:28 Dose: 4,000 unit Documented By: AMANDA Hydromorphone HCl (Hydromorphone 0.5 Mg Inj) 0.5 mg IV Q15MIN PRN PRN Reason: Pain, Last Admin: 09/07/22 00:38 Dose: 0.5 mg Documented By: ARIS Sodium Chloride (Normal Saline 0.9%) 1,000 mls @ 1,000 mls/hr IV BOLUS ONE Stop: 09/07/22 01:30 Last Infusion: 09/07/22 03:07 Dose: 0 mls/hr Documented By: Admin: 09/07/22 00:39 Dose: 1,000 mls/hr Documented By: ARIS Sodium Chloride (Normal Saline 0.9%) 1,000 mls @ 1,000 mls/hr IV BOLUS ONE Stop: 09/07/22 02:34 Last Infusion: 09/07/22 02:51 Dose: 0 mls/hr Documented By: Admin: 09/07/22 01:58 Dose: 1,000 mls/hr Documented By: ARIS Sodium Chloride (Normal Saline 0.9%) 1,000 mls @ 150 mls/hr IV CONT DIAN Last Infusion: 09/07/22 09:30 Dose: 150 mls/hr Documented By: Admin: 09/07/22 08:50 Dose: 150 mls/hr Documented By: Infusion: 09/07/22 08:50 Dose: 150 mls/hr Documented By: Infusion: 09/07/22 06:49 Dose: 150 mls/hr Documented By: Admin: 09/07/22 02:13 Dose: 150 mls/hr Documented By: ARIS Amiodarone HCl/Dextrose (Nexterone) 150 mg in 100 mls @ 600 mls/hr IV NOW ONE; Protocol Stop: 09/07/22 02:06 Last Infusion: 09/07/22 02:15 Dose: 0 mls/hr Documented By: Admin: 09/07/22 02:02 Dose: 600 mls/hr Documented By: ARIS Amiodarone HCl/Dextrose (Nexterone) 360 mg in 200 mls @ 33.333 mls/hr IV NOW ONE; Protocol Stop: 09/07/22 07:56 Last Titration: 09/07/22 08:17 Dose: 0 mls/hr, 0 mls/hr Documented By: Admin: 09/07/22 02:16 Dose: 33.333 mls/hr, 33.33 mls/hr Documented By: ARIS Amiodarone HCl/Dextrose (Nexterone) 540 mg in 300 mls @ 16.7 mls/hr IV CONT DIAN; Protocol Stop: 09/07/22 19:58 Last Admin: 09/07/22 03:09 Dose: Not Given Documented By: GILBERT Amiodarone HCl/Dextrose (Nexterone) 360 mg in 200 mls @ 16.7 mls/hr IV CONT DIAN; Protocol Stop: 09/07/22 14:29 Last Titration: 09/07/22 09:30 Dose: 16.7 mls/hr, 16.7 mls/hr Documented By: Admin: 09/07/22 08:37 Dose: 16.7 mls/hr, 16.7 mls/hr Documented By: JAIRON Epinephrine HCl 4 mg/ Dextrose 250 mls @ 3.75 mls/hr IV TITRATE DIAN; Protocol Last Titration: 09/07/22 08:30 Dose: 0 mcg/min, 0 mls/hr Documented By: Titration: 09/07/22 07:20 Dose: 10 mcg/min, 37.5 mls/hr Documented By: Titration: 09/07/22 06:23 Dose: 7 mcg/min, 26.25 mls/hr Documented By: Titration: 09/07/22 05:09 Dose: 5 mcg/min, 18.75 mls/hr Documented By: Titration: 09/07/22 05:06 Dose: 4 mcg/min, 15 mls/hr Documented By: Titration: 09/07/22 04:54 Dose: 3 mcg/min, 11.25 mls/hr Documented By: Titration: 09/07/22 04:07 Dose: 2 mcg/min, 7.5 mls/hr Documented By: Admin: 09/07/22 03:44 Dose: 1 mcg/min, 3.75 mls/hr Documented By: AMANDA Ceftriaxone Sodium 2,000 mg/ (Sodium Chloride) 100 mls @ 200 mls/hr IV NOW ONE Stop: 09/07/22 05:16 Last Infusion: 09/07/22 06:39 Dose: 0 mls/hr Documented By: Admin: 09/07/22 05:23 Dose: 200 mls/hr Documented By: AMANDA Heparin Sodium/Dextrose (Heparin Drip) 25,000 unit in 500 mls @ 12.846 mls/hr IV CONT DIAN; Protocol Last Titration: 09/07/22 09:30 Dose: 12 units/kg/hr, 12.846 mls/hr Documented By: Admin: 09/07/22 05:29 Dose: 12 units/kg/hr, 12.846 mls/hr Documented By: AMANDA Sodium Chloride (Normal Saline 0.9%) 1,000 mls @ 150 mls/hr IV CONT DIAN Last Admin: 09/07/22 06:50 Dose: Not Given Documented By: AMANDA Phenylephrine HCl 20,000 mcg/ (Dextrose) 250 mls @ 75 mls/hr IV TITRATE DIAN; Protocol Last Titration: 09/07/22 09:30 Dose: 60 mcg/min, 45 mls/hr Documented By: Titration: 09/07/22 08:55 Dose: 60 mcg/min, 45 mls/hr Documented By: Admin: 09/07/22 08:30 Dose: 100 mcg/min, 75 mls/hr Documented By: JAIRON Metronidazole (Flagyl) 500 mg in 100 mls @ 100 mls/hr IV NOW ONE Stop: 09/07/22 08:50 Last Infusion: 09/07/22 09:30 Dose: 100 mls/hr Documented By: Admin: 09/07/22 08:40 Dose: 100 mls/hr Documented By: JAIRON Methylprednisolone (Methylprednisolone 125 Mg/2 Ml Vial) 125 mg IV NOW ONE Stop: 09/07/22 01:36 Last Admin: 09/07/22 01:41 Dose: 125 mg Documented By: GILBERT Morphine Sulfate (Morphine 2 Mg/Ml Inj) 2 mg IV Q2HR PRN PRN Reason: Pain, Moderate (4-6) Last Admin: 09/07/22 05:15 Dose: 2 mg Documented By: AMANDA Nitroglycerin (Nitroglycerin 0.4 Mg Sl Tab) 0.4 mg SL [id number] PRN PRN Reason: Pain, Severe (7-10) Ondansetron HCl (Ondansetron 4 Mg/2 Ml Inj) 4 mg IV NOW ONE Stop: 09/07/22 00:32 Last Admin: 09/07/22 00:38 Dose: 4 mg Documented By: ARIS Vital Signs Vital signs: Vital Signs - 8 hr 09/07/22 01:56 09/07/22 01:10 09/07/22 01:15 Pulse Rate 83 89 85 Respiratory Rate 17 20 Blood Pressure 110/53 L Pulse Oximetry 92 Oxygen Delivery Method Oxygen Flow Rate 09/07/22 01:20 09/07/22 01:25 09/07/22 01:30 Pulse Rate 84 96 H 105 H Respiratory Rate 22 26 H 27 H Blood Pressure Pulse Oximetry 95 96 Oxygen Delivery Method Oxygen Flow Rate 09/07/22 01:35 09/07/22 01:38 09/07/22 01:38 Pulse Rate 102 H 83 Respiratory Rate 40 H 25 H Blood Pressure 108/58 L Pulse Oximetry 97 98 Oxygen Delivery Method Oxygen Flow Rate 09/07/22 01:40 09/07/22 01:45 09/07/22 01:45 Pulse Rate 83 85 Respiratory Rate 30 H 33 H Blood Pressure 125/57 L Pulse Oximetry 97 94 Oxygen Delivery Method Oxygen Flow Rate 09/07/22 01:50 09/07/22 01:53 09/07/22 01:53 Pulse Rate 82 82 Respiratory Rate 27 H 33 H Blood Pressure 110/53 L Pulse Oximetry 94 96 Oxygen Delivery Method Oxygen Flow Rate 09/07/22 01:55 09/07/22 02:00 09/07/22 02:00 Pulse Rate 83 85 Respiratory Rate 26 H 26 H Blood Pressure 104/58 L Pulse Oximetry 96 92 Oxygen Delivery Method Oxygen Flow Rate 09/07/22 02:05 09/07/22 02:05 09/07/22 02:10 Pulse Rate 85 Respiratory Rate 24 Blood Pressure 108/56 L 100/57 L Pulse Oximetry 91 Oxygen Delivery Method Nasal Cannula Oxygen Flow Rate 2 09/07/22 02:10 09/07/22 02:14 09/07/22 02:14 Pulse Rate 84 80 Respiratory Rate 19 18 Blood Pressure 92/55 L Pulse Oximetry 96 97 Oxygen Delivery Method Oxygen Flow Rate 09/07/22 02:15 09/07/22 02:15 09/07/22 02:20 Pulse Rate 81 Respiratory Rate 22 Blood Pressure 93/52 L 91/55 L Pulse Oximetry 97 Oxygen Delivery Method Oxygen Flow Rate 09/07/22 02:20 09/07/22 02:25 09/07/22 02:25 Pulse Rate 75 74 Respiratory Rate 18 17 Blood Pressure 91/53 L Pulse Oximetry 96 97 Oxygen Delivery Method Oxygen Flow Rate 09/07/22 02:30 09/07/22 02:30 09/07/22 02:35 Pulse Rate 76 Respiratory Rate 19 Blood Pressure 91/51 L 90/50 L Pulse Oximetry 97 Oxygen Delivery Method Oxygen Flow Rate 09/07/22 02:35 09/07/22 02:40 09/07/22 02:40 Pulse Rate 75 79 Respiratory Rate 17 21 Blood Pressure 88/53 L Pulse Oximetry 97 97 Oxygen Delivery Method Nasal Cannula Oxygen Flow Rate 2 09/07/22 02:45 09/07/22 02:45 09/07/22 02:50 Pulse Rate 76 Respiratory Rate 18 Blood Pressure 89/53 L 92/50 L Pulse Oximetry 97 Oxygen Delivery Method Oxygen Flow Rate 09/07/22 02:50 09/07/22 02:55 09/07/22 02:55 Pulse Rate 76 77 Respiratory Rate 17 24 Blood Pressure 98/57 L Pulse Oximetry 98 98 Oxygen Delivery Method Oxygen Flow Rate 09/07/22 03:00 09/07/22 03:00 09/07/22 03:05 Pulse Rate 108 H Respiratory Rate Blood Pressure 99/56 L 99/56 L Pulse Oximetry Oxygen Delivery Method Oxygen Flow Rate 09/07/22 03:05 09/07/22 03:10 09/07/22 03:10 Pulse Rate 91 H 85 Respiratory Rate 20 18 Blood Pressure 96/53 L Pulse Oximetry 99 98 Oxygen Delivery Method Oxygen Flow Rate 09/07/22 03:15 09/07/22 03:15 09/07/22 03:20 Pulse Rate 84 Respiratory Rate 18 Blood Pressure 92/52 L 86/50 L Pulse Oximetry 98 Oxygen Delivery Method Oxygen Flow Rate 09/07/22 03:20 09/07/22 03:21 09/07/22 03:21 Pulse Rate 86 85 Respiratory Rate 19 18 Blood Pressure 88/52 L Pulse Oximetry 97 98 Oxygen Delivery Method Nasal Cannula Oxygen Flow Rate 2 09/07/22 03:25 09/07/22 03:25 09/07/22 03:30 Pulse Rate 86 Respiratory Rate 19 Blood Pressure 93/51 L 88/49 L Pulse Oximetry 98 Oxygen Delivery Method Oxygen Flow Rate 09/07/22 03:30 09/07/22 03:33 09/07/22 03:33 Pulse Rate 83 81 Respiratory Rate 19 20 Blood Pressure 88/50 L Pulse Oximetry 97 98 Oxygen Delivery Method Oxygen Flow Rate 09/07/22 03:35 09/07/22 03:35 09/07/22 03:40 Pulse Rate 80 Respiratory Rate 18 Blood Pressure 89/51 L 90/51 L Pulse Oximetry 98 Oxygen Delivery Method Oxygen Flow Rate 09/07/22 03:40 09/07/22 03:45 09/07/22 03:45 Pulse Rate 81 78 Respiratory Rate 23 23 Blood Pressure 89/53 L Pulse Oximetry 98 97 Oxygen Delivery Method Oxygen Flow Rate 09/07/22 03:50 09/07/22 03:50 09/07/22 03:53 Pulse Rate 78 Respiratory Rate 18 Blood Pressure 87/53 L 99/58 L Pulse Oximetry 97 Oxygen Delivery Method Oxygen Flow Rate 09/07/22 03:53 09/07/22 03:55 09/07/22 03:57 Pulse Rate 86 81 80 Respiratory Rate 20 25 H Blood Pressure Pulse Oximetry 96 93 96 Oxygen Delivery Method Oxygen Flow Rate 09/07/22 03:57 09/07/22 04:00 09/07/22 04:01 Pulse Rate 79 78 Respiratory Rate 25 H 23 Blood Pressure 88/50 L Pulse Oximetry 97 97 Oxygen Delivery Method Oxygen Flow Rate 09/07/22 04:01 09/07/22 04:05 09/07/22 04:10 Pulse Rate 75 76 Respiratory Rate 16 17 Blood Pressure 87/51 L Pulse Oximetry 96 97 Oxygen Delivery Method Oxygen Flow Rate 09/07/22 04:15 09/07/22 04:16 09/07/22 04:16 Pulse Rate 82 82 Respiratory Rate 23 20 Blood Pressure 91/55 L Pulse Oximetry 98 98 Oxygen Delivery Method Oxygen Flow Rate 09/07/22 04:20 09/07/22 04:20 09/07/22 04:25 Pulse Rate 85 Respiratory Rate 23 Blood Pressure 90/53 L 93/52 L Pulse Oximetry 98 Oxygen Delivery Method Oxygen Flow Rate 09/07/22 04:25 09/07/22 04:28 09/07/22 04:28 Pulse Rate 84 84 Respiratory Rate 23 22 Blood Pressure 96/54 L Pulse Oximetry 97 97 Oxygen Delivery Method Oxygen Flow Rate 09/07/22 04:30 09/07/22 04:30 09/07/22 04:35 Pulse Rate 83 Respiratory Rate 22 Blood Pressure 95/51 L 92/51 L Pulse Oximetry 96 Oxygen Delivery Method Oxygen Flow Rate 09/07/22 04:35 09/07/22 04:37 09/07/22 04:37 Pulse Rate 82 83 Respiratory Rate 19 24 Blood Pressure 91/53 L Pulse Oximetry 96 97 Oxygen Delivery Method Oxygen Flow Rate 09/07/22 04:40 09/07/22 04:40 09/07/22 04:45 Pulse Rate 86 Respiratory Rate 35 H Blood Pressure 93/52 L 91/50 L Pulse Oximetry 97 Oxygen Delivery Method Oxygen Flow Rate 09/07/22 04:45 09/07/22 04:50 09/07/22 04:50 Pulse Rate 80 80 Respiratory Rate 15 21 Blood Pressure 88/50 L Pulse Oximetry 97 96 Oxygen Delivery Method Oxygen Flow Rate 09/07/22 04:55 09/07/22 04:55 09/07/22 05:00 Pulse Rate 79 Respiratory Rate 17 Blood Pressure 86/50 L 87/49 L Pulse Oximetry 96 Oxygen Delivery Method Oxygen Flow Rate 09/07/22 05:00 09/07/22 05:05 09/07/22 05:05 Pulse Rate 81 82 Respiratory Rate 17 21 Blood Pressure 88/48 L Pulse Oximetry 97 97 Oxygen Delivery Method Oxygen Flow Rate 09/07/22 05:09 09/07/22 05:09 09/07/22 05:10 Pulse Rate 82 Respiratory Rate 16 Blood Pressure 91/51 L 88/47 L Pulse Oximetry 97 Oxygen Delivery Method Oxygen Flow Rate 09/07/22 05:10 09/07/22 05:15 09/07/22 05:15 Pulse Rate 82 87 Respiratory Rate 17 20 Blood Pressure 92/49 L Pulse Oximetry 97 97 Oxygen Delivery Method Oxygen Flow Rate 09/07/22 05:20 09/07/22 05:20 09/07/22 05:25 Pulse Rate 85 Respiratory Rate 16 Blood Pressure 93/50 L 91/47 L Pulse Oximetry 96 Oxygen Delivery Method Oxygen Flow Rate 09/07/22 05:25 09/07/22 05:30 09/07/22 05:30 Pulse Rate 85 87 Respiratory Rate 17 18 Blood Pressure 94/53 L Pulse Oximetry 96 96 Oxygen Delivery Method Oxygen Flow Rate 09/07/22 05:35 09/07/22 05:35 09/07/22 05:40 Pulse Rate 88 Respiratory Rate 18 Blood Pressure 95/51 L 92/46 L Pulse Oximetry 97 Oxygen Delivery Method Oxygen Flow Rate 09/07/22 05:40 09/07/22 05:45 09/07/22 05:45 Pulse Rate 87 91 H Respiratory Rate 17 20 Blood Pressure 96/51 L Pulse Oximetry 97 97 Oxygen Delivery Method Oxygen Flow Rate 09/07/22 05:50 09/07/22 05:50 09/07/22 05:55 Pulse Rate 91 H Respiratory Rate 22 Blood Pressure 100/52 L 103/55 L Pulse Oximetry 97 Oxygen Delivery Method Oxygen Flow Rate 09/07/22 05:55 09/07/22 06:00 09/07/22 06:00 Pulse Rate 88 87 Respiratory Rate 16 17 Blood Pressure 99/51 L Pulse Oximetry 97 96 Oxygen Delivery Method Oxygen Flow Rate 09/07/22 06:05 09/07/22 06:05 09/07/22 06:10 Pulse Rate 89 Respiratory Rate 16 Blood Pressure 100/53 L 103/51 L Pulse Oximetry 96 Oxygen Delivery Method Oxygen Flow Rate 09/07/22 06:10 09/07/22 06:15 09/07/22 06:15 Pulse Rate 93 H 88 Respiratory Rate 23 16 Blood Pressure 96/51 L Pulse Oximetry 96 95 Oxygen Delivery Method Oxygen Flow Rate 09/07/22 06:20 09/07/22 06:20 09/07/22 06:25 Pulse Rate 88 Respiratory Rate 17 Blood Pressure 97/49 L 97/50 L Pulse Oximetry 96 Oxygen Delivery Method Oxygen Flow Rate 09/07/22 06:25 09/07/22 06:30 09/07/22 06:30 Pulse Rate 90 93 H Respiratory Rate 16 17 Blood Pressure 101/53 L Pulse Oximetry 95 96 Oxygen Delivery Method Oxygen Flow Rate 09/07/22 06:35 09/07/22 06:35 09/07/22 06:40 Pulse Rate 95 H Respiratory Rate 17 Blood Pressure 106/52 L 99/51 L Pulse Oximetry 95 Oxygen Delivery Method Oxygen Flow Rate 09/07/22 06:40 09/07/22 06:45 09/07/22 06:45 Pulse Rate 91 H 91 H Respiratory Rate 16 14 Blood Pressure 101/53 L Pulse Oximetry 95 94 Oxygen Delivery Method Oxygen Flow Rate 09/07/22 06:50 09/07/22 06:50 09/07/22 06:55 Pulse Rate 93 H Respiratory Rate 13 Blood Pressure 103/53 L 101/52 L Pulse Oximetry 95 Oxygen Delivery Method Oxygen Flow Rate 09/07/22 06:55 09/07/22 07:00 09/07/22 07:00 Pulse Rate 91 H 94 H Respiratory Rate 16 23 Blood Pressure 97/51 L Pulse Oximetry 95 95 Oxygen Delivery Method Oxygen Flow Rate 09/07/22 08:18 09/07/22 07:05 09/07/22 07:05 Pulse Rate 97 H 91 H Respiratory Rate 19 21 Blood Pressure 118/56 L 93/50 L Pulse Oximetry 96 97 Oxygen Delivery Method Room Air Nasal Cannula Oxygen Flow Rate 2 09/07/22 07:10 09/07/22 07:10 09/07/22 07:15 Pulse Rate 90 Respiratory Rate 19 Blood Pressure 94/47 L 86/48 L Pulse Oximetry 96 Oxygen Delivery Method Oxygen Flow Rate 09/07/22 07:15 09/07/22 07:17 09/07/22 07:17 Pulse Rate 88 90 Respiratory Rate 20 21 Blood Pressure 93/49 L Pulse Oximetry 96 96 Oxygen Delivery Method Nasal Cannula Oxygen Flow Rate 2 09/07/22 07:20 09/07/22 07:20 09/07/22 07:25 Pulse Rate 92 H Respiratory Rate 17 Blood Pressure 100/51 L 112/50 L Pulse Oximetry 96 Oxygen Delivery Method Oxygen Flow Rate 09/07/22 07:25 09/07/22 07:30 09/07/22 07:30 Pulse Rate 98 H 94 H Respiratory Rate 24 18 Blood Pressure 105/52 L Pulse Oximetry 97 96 Oxygen Delivery Method Nasal Cannula Oxygen Flow Rate 2 09/07/22 07:35 09/07/22 07:35 09/07/22 07:40 Pulse Rate 92 H Respiratory Rate 20 Blood Pressure 105/52 L 105/52 L Pulse Oximetry 95 Oxygen Delivery Method Oxygen Flow Rate 09/07/22 07:40 09/07/22 07:45 09/07/22 07:45 Pulse Rate 94 H 93 H Respiratory Rate 18 22 Blood Pressure 104/51 L Pulse Oximetry 96 96 Oxygen Delivery Method Oxygen Flow Rate 09/07/22 07:50 09/07/22 07:50 09/07/22 07:55 Pulse Rate 93 H Respiratory Rate 20 Blood Pressure 101/51 L 98/50 L Pulse Oximetry 96 Oxygen Delivery Method Nasal Cannula Oxygen Flow Rate 2 09/07/22 07:55 09/07/22 08:00 09/07/22 08:00 Pulse Rate 89 90 Respiratory Rate 17 16 Blood Pressure 102/51 L Pulse Oximetry 95 94 Oxygen Delivery Method Oxygen Flow Rate 09/07/22 08:05 09/07/22 08:10 09/07/22 08:14 Pulse Rate 99 H 95 H 101 H Respiratory Rate 20 19 19 Blood Pressure Pulse Oximetry 94 Oxygen Delivery Method Oxygen Flow Rate 09/07/22 08:14 09/07/22 08:15 09/07/22 08:15 Pulse Rate 100 H Respiratory Rate 21 Blood Pressure 124/60 118/56 L Pulse Oximetry 96 Oxygen Delivery Method Nasal Cannula Oxygen Flow Rate 2 09/07/22 08:20 09/07/22 08:20 09/07/22 08:25 Pulse Rate 93 H Respiratory Rate 18 Blood Pressure 113/52 L 101/49 L Pulse Oximetry 95 Oxygen Delivery Method Oxygen Flow Rate 09/07/22 08:25 09/07/22 08:30 09/07/22 08:30 Pulse Rate 92 H 90 Respiratory Rate 21 21 Blood Pressure 101/51 L Pulse Oximetry 94 94 Oxygen Delivery Method Oxygen Flow Rate 09/07/22 08:33 09/07/22 08:33 09/07/22 08:34 Pulse Rate 95 H 91 H Respiratory Rate 19 21 Blood Pressure 94/47 L Pulse Oximetry 95 95 Oxygen Delivery Method Oxygen Flow Rate 09/07/22 08:34 09/07/22 08:35 09/07/22 08:36 Pulse Rate 90 86 Respiratory Rate 22 17 Blood Pressure 85/47 L Pulse Oximetry 94 92 Oxygen Delivery Method Oxygen Flow Rate 09/07/22 08:36 09/07/22 08:38 09/07/22 08:38 Pulse Rate 82 Respiratory Rate 19 Blood Pressure 89/49 L 95/51 L Pulse Oximetry 91 Oxygen Delivery Method Oxygen Flow Rate 09/07/22 08:39 09/07/22 08:39 09/07/22 08:40 Pulse Rate 84 81 Respiratory Rate 20 21 Blood Pressure 87/51 L Pulse Oximetry 94 92 Oxygen Delivery Method Oxygen Flow Rate 09/07/22 08:41 09/07/22 08:41 09/07/22 08:42 Pulse Rate 81 80 Respiratory Rate 21 21 Blood Pressure 99/51 L Pulse Oximetry 93 94 Oxygen Delivery Method Oxygen Flow Rate 09/07/22 08:42 09/07/22 08:45 09/07/22 08:45 Pulse Rate 77 Respiratory Rate 18 Blood Pressure 105/52 L 107/54 L Pulse Oximetry 92 Oxygen Delivery Method Oxygen Flow Rate 09/07/22 08:48 09/07/22 08:48 09/07/22 08:50 Pulse Rate 74 73 Respiratory Rate 21 20 Blood Pressure 114/60 Pulse Oximetry 92 93 Oxygen Delivery Method Oxygen Flow Rate 09/07/22 08:51 09/07/22 08:51 09/07/22 08:54 Pulse Rate 71 72 Respiratory Rate 18 19 Blood Pressure 116/55 L Pulse Oximetry 94 96 Oxygen Delivery Method Oxygen Flow Rate 09/07/22 08:54 09/07/22 08:55 Pulse Rate 70 Respiratory Rate 18 Blood Pressure 120/56 L Pulse Oximetry 96 Oxygen Delivery Method Oxygen Flow Rate Medical Decision Making <Apryl Lara MD - Last Filed: 09/07/22 05:39> Lab Data Result diagrams: 09/07/22 02:02 09/07/22 02:02 Labs: Lab Results 09/06/22 09/06/22 09/07/22 Range/Units 23:43 23:43 02:02 WBC 9.3 (4.5-11.0) X10^3/uL RBC 4.46 (4.0-5.2) X10^6/uL Hgb 14.2 (12.0-16.0) g/dL Hct 40.2 (36-46) % MCV 90.1 (80-100) fL MCH 32.0 (26-34) PG MCHC 35.5 (30-36) % RDW 12.7 (11.6-14.8) % Plt Count 247 (150-400) X10^3/uL Neut % (Auto) 74.7 (50-75) % Lymph % (Auto) 13.2 L (25-40) % [place] % (Auto) 11.0 (3-14) % Eos % (Auto) 0.8 L (2-4) % Baso % (Auto) 0.3 (0-2) % Neut # (Auto) 6900 (9013-8016) /uL Lymph # (Auto) 1200 (5088-8006) /uL [place] # (Auto) 1000 H (0-900) /uL Eos # (Auto) 100 (0-450) /uL Baso # (Auto) 0 (0-100) /uL APTT (26-36) SECONDS Sodium 135 L (137-145) mmol/L Potassium 4.2 (3.4-5.1) mmol/L Chloride 101 (98-107) mmol/L Carbon Dioxide 26 (22-32) mmol/L BUN 10 (7-17) mg/dL Creatinine 0.75 (0.52-1.04) mg/dL Estimated GFR > 60 (>60) mL/min BUN/Creatinine Ratio 13.3 (6-22) Glucose 103 (80-110) mg/dL Lactate (0.7-2.1) mmol/L Calcium 8.8 (8.4-10.2) mg/dL Magnesium 1.9 (1.6-2.3) mg/dL Total Bilirubin 0.5 (0.2-1.3) mg/dL AST 47 H (14-36) IU/L ALT 46 H (<35) IU/L Alkaline Phosphatase 111 (38-126) U/L Total Creatine Kinase (30-135) U/L CK-MB (CK-2) CK-MB (CK-2) Rel Index Troponin I (0.01-0.034) ng/mL Total Protein 7.3 (6.3-8.2) g/dL Albumin 4.2 (3.5-5.0) g/dL Globulin 3.1 (1.7-4.1) g/dL Albumin/Globulin Ratio 1.4 (1.0-2.8) Lipase 80 (23-300) U/L SARS-CoV-2 (PCR) (Negative) 09/07/22 09/07/22 09/07/22 Range/Units 02:02 02:02 02:02 WBC 8.7 (4.5-11.0) X10^3/uL RBC 4.00 (4.0-5.2) X10^6/uL Hgb 12.6 (12.0-16.0) g/dL Hct 36.5 (36-46) % MCV 91.3 (80-100) fL MCH 31.6 (26-34) PG MCHC 34.6 (30-36) % RDW 13.0 (11.6-14.8) % Plt Count 208 (150-400) X10^3/uL Neut % (Auto) 79.8 H (50-75) % Lymph % (Auto) 9.4 L (25-40) % Baldwin % (Auto) 7.7 (3-14) % Eos % (Auto) 0.8 L (2-4) % Baso % (Auto) 2.3 H (0-2) % Neut # (Auto) 6900 (0721-0615) /uL Lymph # (Auto) 800 L (3640-2808) /uL Baldwin # (Auto) 700 (0-900) /uL Eos # (Auto) 100 (0-450) /uL Baso # (Auto) 200 H (0-100) /uL APTT (26-36) SECONDS Sodium 135 L (137-145) mmol/L Potassium 3.9 (3.4-5.1) mmol/L Chloride 107 (98-107) mmol/L Carbon Dioxide 23 (22-32) mmol/L BUN 9 (7-17) mg/dL Creatinine 0.61 (0.52-1.04) mg/dL Estimated GFR > 60 (>60) mL/min BUN/Creatinine Ratio 14.8 (6-22) Glucose 102 (80-110) mg/dL Lactate 0.7 (0.7-2.1) mmol/L Calcium 7.4 L (8.4-10.2) mg/dL Magnesium (1.6-2.3) mg/dL Total Bilirubin 0.3 (0.2-1.3) mg/dL AST 40 H (14-36) IU/L ALT 40 H (<35) IU/L Alkaline Phosphatase 96 (38-126) U/L Total Creatine Kinase < 20 L (30-135) U/L CK-MB (CK-2) TNP CK-MB (CK-2) Rel Index TNP Troponin I < 0.012 (0.01-0.034) ng/mL Total Protein 5.8 L (6.3-8.2) g/dL Albumin 3.3 L (3.5-5.0) g/dL Globulin 2.5 (1.7-4.1) g/dL Albumin/Globulin Ratio 1.3 (1.0-2.8) Lipase 62 (23-300) U/L SARS-CoV-2 (PCR) (Negative) 09/07/22 09/07/22 09/07/22 Range/Units 02:06 04:23 06:54 WBC (4.5-11.0) X10^3/uL RBC (4.0-5.2) X10^6/uL Hgb (12.0-16.0) g/dL Hct (36-46) % MCV (80-100) fL MCH (26-34) PG MCHC (30-36) % RDW (11.6-14.8) % Plt Count (150-400) X10^3/uL Neut % (Auto) (50-75) % Lymph % (Auto) (25-40) % Baldwin % (Auto) (3-14) % Eos % (Auto) (2-4) % Baso % (Auto) (0-2) % Neut # (Auto) (1030-6477) /uL Lymph # (Auto) (9703-7838) /uL Baldwin # (Auto) (0-900) /uL Eos # (Auto) (0-450) /uL Baso # (Auto) (0-100) /uL APTT (26-36) SECONDS Sodium (137-145) mmol/L Potassium (3.4-5.1) mmol/L Chloride (98-107) mmol/L Carbon Dioxide (22-32) mmol/L BUN (7-17) mg/dL Creatinine (0.52-1.04) mg/dL Estimated GFR (>60) mL/min BUN/Creatinine Ratio (6-22) Glucose (80-110) mg/dL Lactate (0.7-2.1) mmol/L Calcium (8.4-10.2) mg/dL Magnesium (1.6-2.3) mg/dL Total Bilirubin (0.2-1.3) mg/dL AST (14-36) IU/L ALT (<35) IU/L Alkaline Phosphatase (38-126) U/L Total Creatine Kinase (30-135) U/L CK-MB (CK-2) CK-MB (CK-2) Rel Index Troponin I 0.053 H 0.099 H (0.01-0.034) ng/mL Total Protein (6.3-8.2) g/dL Albumin (3.5-5.0) g/dL Globulin (1.7-4.1) g/dL Albumin/Globulin Ratio (1.0-2.8) Lipase (23-300) U/L SARS-CoV-2 (PCR) Negative (Negative) 09/07/22 Range/Units 07:00 WBC (4.5-11.0) X10^3/uL RBC (4.0-5.2) X10^6/uL Hgb (12.0-16.0) g/dL Hct (36-46) % MCV (80-100) fL MCH (26-34) PG MCHC (30-36) % RDW (11.6-14.8) % Plt Count (150-400) X10^3/uL Neut % (Auto) (50-75) % Lymph % (Auto) (25-40) % Baldwin % (Auto) (3-14) % Eos % (Auto) (2-4) % Baso % (Auto) (0-2) % Neut # (Auto) (0747-5206) /uL Lymph # (Auto) (1341-1939) /uL Baldwin # (Auto) (0-900) /uL Eos # (Auto) (0-450) /uL Baso # (Auto) (0-100) /uL APTT > 150 H* (26-36) SECONDS Sodium (137-145) mmol/L Potassium (3.4-5.1) mmol/L Chloride (98-107) mmol/L Carbon Dioxide (22-32) mmol/L BUN (7-17) mg/dL Creatinine (0.52-1.04) mg/dL Estimated GFR (>60) mL/min BUN/Creatinine Ratio (6-22) Glucose (80-110) mg/dL Lactate (0.7-2.1) mmol/L Calcium (8.4-10.2) mg/dL Magnesium (1.6-2.3) mg/dL Total Bilirubin (0.2-1.3) mg/dL AST (14-36) IU/L ALT (<35) IU/L Alkaline Phosphatase (38-126) U/L Total Creatine Kinase (30-135) U/L CK-MB (CK-2) CK-MB (CK-2) Rel Index Troponin I (0.01-0.034) ng/mL Total Protein (6.3-8.2) g/dL Albumin (3.5-5.0) g/dL Globulin (1.7-4.1) g/dL Albumin/Globulin Ratio (1.0-2.8) Lipase (23-300) U/L SARS-CoV-2 (PCR) (Negative) Urine Dip Bedside Urine Glucose Negative Bedside Urine Bilirubin - Negative Bedside Urine Ketone - Negative Urine Specific [place] 1.005 Bedside Urine Occult Blood - Negative Bedside Urine pH 8.5 Bedside Urine Protein +/- 15 Bedside Urine Urobilinogen - Negative Bedside Urine Nitrite - Negative Bedside Urine Leukocytes - Negative Esterase Point of care testing: Urine Dip Bedside Urine Glucose Negative Bedside Urine Bilirubin - Negative Bedside Urine Ketone - Negative Urine Specific [place] 1.005 Bedside Urine Occult Blood - Negative Bedside Urine pH 8.5 Bedside Urine Protein +/- 15 Bedside Urine Urobilinogen - Negative Bedside Urine Nitrite - Negative Bedside Urine Leukocytes - Negative Esterase Imaging Data CT scan - abdomen/pelvis: Radiologist's Impression: FINDINGS:? Image quality:? Excellent.? ? Lung bases:? Unremarkable. Heart:? No significant findings. ? ABDOMEN: Liver:? Unremarkable.? ? Gallbladder:? Previously resected? ? Biliary ducts:? Unremarkable.? ? Pancreas:? Unremarkable.? ? Spleen:? Unremarkable.? ? Adrenal Glands:? Unremarkable.? ? Kidneys and Ureters:? Unremarkable.? ? ? Stomach and Bowel:? Stomach, small bowel loops, and colon are unremarkable.? Peritoneum:? No abnormal intraperitoneal fluid.? No free air.? ? Ventral Wall: ? No hernias.? Abdominal Nodes:? No retroperitoneal or mesenteric adenopathy by size criteria.? Vessels:? Aorta and inferior vena cava are normal in size.? ? PELVIS: Pelvic Organs:? Unremarkable.? ? Bladder:? Unremarkable.? ? Pelvic Nodes: No enlarged lymph nodes.? Miscellaneous:? At the left lower quadrant there is acute diverticulitis involving the proximal sigmoid colon, but without peridiverticular abscess.. ? ? ? Bones:? Unremarkable.? IMPRESSION:? Prior cholecystectomy.? Acute diverticulitis left lower quadrant involving the proximal sigmoid colon, but no peridiverticular abscess is found. ? ? Dictated by: Isaac Anderson M.D. on 09/07/2022 at 1:25 ? ? Chest x-ray: My Impression: 1:57 clinically this is atelectasis with no evidence of pneumonia 4:20am line is pulled back 5 cm and redressed Radiologist's Impression: 1:57 left basilar airspace disease which may indicate atelectasis or pneumonia Dr José Martin 4:16 repeat chest x-ray after central line placement No pneumothorax. Catheter tip extends within the right atrium and can be ret racted 5-6 cm ECG Data Interpretation: 00:09 Sinus rhythm Rate of 76, normal intervals, normal axis No acute ischemic changes 1:44 with chest pain, possible constrast reaction and post ventricular overdrive resolved V tach Sinus at a rate of 83 No acute ischemic changes 2:05 with persistent Chest pain Sinus at rate of 86 Significant right axis shift previously had been at 11 is now at 167. Same electrode monitor placing. Uncertain significance of axis shift No acute ischemic changes MDM Narrative Medical decision making narrative: 67-year-old woman with increasing lower abdominal pain presents for further evaluation. Labs are fairly reassuring without evidence of urinary tract infection. CT scan is currently pending. 123am she had an episode of ventricular tachycardia that was an abrupt change from her sinus rhythm. When to evaluate patient and she stated that her defibrillator was going off ( it was actually overdrive pacing). After approximately 45-60 seconds her pacemaker successfully converted her rhythm back to sinus. She was relatively on phased by any of this. She states that that seems to be a regular occurrence at night particularly she is lying on her left side. 132 CT scan reveals acute diverticulitis 133am patient is now complaining of chest pain. She is concerned that she is having a reaction to the IV contrast from the CT scan. Notes similar episode after CT scan done in December 2019. She describes it as a bandlike pain around the lower chest/upper abdomen. In talking with her she is alert, appropriate there is no diaphoresis, no wheezing no respiratory distress. All were talking she again goes into ventricular tachycardia and is again overdrive paced out of it. Will give her Solu-Medrol Benadryl fluids and Pepcid presume that this is a contrast reaction. Will review care with Cardiology as well (her primary cardiology care is through [facility]). Will interrogate her pacemaker and see if she has been going in and out of ventricular tachycardia more frequently. When she is feeling but but her will go ahead and give her antibiotics for acute diverticulitis. Will anticipate hospital admission and do COVID swab accordingly. [address] Jeffers, cardiology. Suggested amiodorone for the increased cardiac ectopy. With increasing chest pain, 3rd EKG is obtained. Still unclear if this is contrast allergy related causing the pain or developing cardiac issues. 245 after 2 L of fluid chest pain has completely resolved however hypotension continues to worsen. No respiratory symptoms or respiratory distress. Blood pressure is currently 88/53. I suspect that the majority of her symptoms are related anaphylaxis. Repeat EKGs are not suggesting acute coronary event. I am going to give her a dose of epinephrine to treat the anaphylaxis and presumed hypotension related to anaphylaxis 345 responded well to the initial epinephrine. Is now beginning to drop pressures again and complaining of central chest pain. She remains well perfused, no erythema no respiratory distress. Case was briefly reviewed with our tele nurse intern for [facility]. She did recommend an epi drip with continued concerns for hypotension with anaphylaxis and developing anaphylactic shock. Phone call to [facility] to see if there are ICU beds available. She did not believe that an ICU bed would be available this evening. Start calling hospitals down the [address] corner to see if there ICU beds available. The patient and her are informed of findings and concerns. Lactic acid and blood cultures will be drawn. Still holding on antibiotics at this time again she is not dramatically ill from her newly diagnosed diverticulitis and I am not concerned for sepsis at this time. 427 central line placed. Epi gtt continues. amiodirone load continues. Runs of V tach continue. Chest pain is minimal. 430 Discussed with /[facility]. will page MICU attending. unclear if beds are available 500 Transfer center recommended calling [facility], doing so now 505 Radiology suggests pulling line back 4-5 cm. this is done and the line is again securred. Pt complaining of more chest tightness. Epi increased and 2mg Morphine given. 510 Repeat trop increasing. Will add heparin as the chest pain continues and she does not have any evidence of bleeding <Gail Hassan DO - Last Filed: 09/07/22 19:24> Lab Data Labs: Lab Results 09/06/22 09/06/22 09/07/22 Range/Units 23:43 23:43 02:02 WBC 9.3 (4.5-11.0) X10^3/uL RBC 4.46 (4.0-5.2) X10^6/uL Hgb 14.2 (12.0-16.0) g/dL Hct 40.2 (36-46) % MCV 90.1 (80-100) fL MCH 32.0 (26-34) PG MCHC 35.5 (30-36) % RDW 12.7 (11.6-14.8) % Plt Count 247 (150-400) X10^3/uL Neut % (Auto) 74.7 (50-75) % Lymph % (Auto) 13.2 L (25-40) % Baldwin % (Auto) 11.0 (3-14) % Eos % (Auto) 0.8 L (2-4) % Baso % (Auto) 0.3 (0-2) % Neut # (Auto) 6900 (1462-6117) /uL Lymph # (Auto) 1200 (2956-4076) /uL Baldwin # (Auto) 1000 H (0-900) /uL Eos # (Auto) 100 (0-450) /uL Baso # (Auto) 0 (0-100) /uL APTT (26-36) SECONDS Sodium 135 L (137-145) mmol/L Potassium 4.2 (3.4-5.1) mmol/L Chloride 101 (98-107) mmol/L Carbon Dioxide 26 (22-32) mmol/L BUN 10 (7-17) mg/dL Creatinine 0.75 (0.52-1.04) mg/dL Estimated GFR > 60 (>60) mL/min BUN/Creatinine Ratio 13.3 (6-22) Glucose 103 (80-110) mg/dL Lactate (0.7-2.1) mmol/L Calcium 8.8 (8.4-10.2) mg/dL Magnesium 1.9 (1.6-2.3) mg/dL Total Bilirubin 0.5 (0.2-1.3) mg/dL AST 47 H (14-36) IU/L ALT 46 H (<35) IU/L Alkaline Phosphatase 111 (38-126) U/L Total Creatine Kinase (30-135) U/L CK-MB (CK-2) CK-MB (CK-2) Rel Index Troponin I (0.01-0.034) ng/mL Total Protein 7.3 (6.3-8.2) g/dL Albumin 4.2 (3.5-5.0) g/dL Globulin 3.1 (1.7-4.1) g/dL Albumin/Globulin Ratio 1.4 (1.0-2.8) Lipase 80 (23-300) U/L SARS-CoV-2 (PCR) (Negative) 09/07/22 09/07/22 09/07/22 Range/Units 02:02 02:02 02:02 WBC 8.7 (4.5-11.0) X10^3/uL RBC 4.00 (4.0-5.2) X10^6/uL Hgb 12.6 (12.0-16.0) g/dL Hct 36.5 (36-46) % MCV 91.3 (80-100) fL MCH 31.6 (26-34) PG MCHC 34.6 (30-36) % RDW 13.0 (11.6-14.8) % Plt Count 208 (150-400) X10^3/uL Neut % (Auto) 79.8 H (50-75) % Lymph % (Auto) 9.4 L (25-40) % Baldwin % (Auto) 7.7 (3-14) % Eos % (Auto) 0.8 L (2-4) % Baso % (Auto) 2.3 H (0-2) % Neut # (Auto) 6900 (1468-1272) /uL Lymph # (Auto) 800 L (2057-2641) /uL Baldwin # (Auto) 700 (0-900) /uL Eos # (Auto) 100 (0-450) /uL Baso # (Auto) 200 H (0-100) /uL APTT (26-36) SECONDS Sodium 135 L (137-145) mmol/L Potassium 3.9 (3.4-5.1) mmol/L Chloride 107 (98-107) mmol/L Carbon Dioxide 23 (22-32) mmol/L BUN 9 (7-17) mg/dL Creatinine 0.61 (0.52-1.04) mg/dL Estimated GFR > 60 (>60) mL/min BUN/Creatinine Ratio 14.8 (6-22) Glucose 102 (80-110) mg/dL Lactate 0.7 (0.7-2.1) mmol/L Calcium 7.4 L (8.4-10.2) mg/dL Magnesium (1.6-2.3) mg/dL Total Bilirubin 0.3 (0.2-1.3) mg/dL AST 40 H (14-36) IU/L ALT 40 H (<35) IU/L Alkaline Phosphatase 96 (38-126) U/L Total Creatine Kinase < 20 L (30-135) U/L CK-MB (CK-2) TNP CK-MB (CK-2) Rel Index TNP Troponin I < 0.012 (0.01-0.034) ng/mL Total Protein 5.8 L (6.3-8.2) g/dL Albumin 3.3 L (3.5-5.0) g/dL Globulin 2.5 (1.7-4.1) g/dL Albumin/Globulin Ratio 1.3 (1.0-2.8) Lipase 62 (23-300) U/L SARS-CoV-2 (PCR) (Negative) 09/07/22 09/07/22 09/07/22 Range/Units 02:06 04:23 06:54 WBC (4.5-11.0) X10^3/uL RBC (4.0-5.2) X10^6/uL Hgb (12.0-16.0) g/dL Hct (36-46) % MCV (80-100) fL MCH (26-34) PG MCHC (30-36) % RDW (11.6-14.8) % Plt Count (150-400) X10^3/uL Neut % (Auto) (50-75) % Lymph % (Auto) (25-40) % Baldwin % (Auto) (3-14) % Eos % (Auto) (2-4) % Baso % (Auto) (0-2) % Neut # (Auto) (9008-7709) /uL Lymph # (Auto) (2439-9955) /uL Baldwin # (Auto) (0-900) /uL Eos # (Auto) (0-450) /uL Baso # (Auto) (0-100) /uL APTT (26-36) SECONDS Sodium (137-145) mmol/L Potassium (3.4-5.1) mmol/L Chloride (98-107) mmol/L Carbon Dioxide (22-32) mmol/L BUN (7-17) mg/dL Creatinine (0.52-1.04) mg/dL Estimated GFR (>60) mL/min BUN/Creatinine Ratio (6-22) Glucose (80-110) mg/dL Lactate (0.7-2.1) mmol/L Calcium (8.4-10.2) mg/dL Magnesium (1.6-2.3) mg/dL Total Bilirubin (0.2-1.3) mg/dL AST (14-36) IU/L ALT (<35) IU/L Alkaline Phosphatase (38-126) U/L Total Creatine Kinase (30-135) U/L CK-MB (CK-2) CK-MB (CK-2) Rel Index Troponin I 0.053 H 0.099 H (0.01-0.034) ng/mL Total Protein (6.3-8.2) g/dL Albumin (3.5-5.0) g/dL Globulin (1.7-4.1) g/dL Albumin/Globulin Ratio (1.0-2.8) Lipase (23-300) U/L SARS-CoV-2 (PCR) Negative (Negative) 09/07/22 Range/Units 07:00 WBC (4.5-11.0) X10^3/uL RBC (4.0-5.2) X10^6/uL Hgb (12.0-16.0) g/dL Hct (36-46) % MCV (80-100) fL MCH (26-34) PG MCHC (30-36) % RDW (11.6-14.8) % Plt Count (150-400) X10^3/uL Neut % (Auto) (50-75) % Lymph % (Auto) (25-40) % Baldwin % (Auto) (3-14) % Eos % (Auto) (2-4) % Baso % (Auto) (0-2) % Neut # (Auto) (2908-2895) /uL Lymph # (Auto) (3092-1878) /uL Baldwin # (Auto) (0-900) /uL Eos # (Auto) (0-450) /uL Baso # (Auto) (0-100) /uL APTT > 150 H* (26-36) SECONDS Sodium (137-145) mmol/L Potassium (3.4-5.1) mmol/L Chloride (98-107) mmol/L Carbon Dioxide (22-32) mmol/L BUN (7-17) mg/dL Creatinine (0.52-1.04) mg/dL Estimated GFR (>60) mL/min BUN/Creatinine Ratio (6-22) Glucose (80-110) mg/dL Lactate (0.7-2.1) mmol/L Calcium (8.4-10.2) mg/dL Magnesium (1.6-2.3) mg/dL Total Bilirubin (0.2-1.3) mg/dL AST (14-36) IU/L ALT (<35) IU/L Alkaline Phosphatase (38-126) U/L Total Creatine Kinase (30-135) U/L CK-MB (CK-2) CK-MB (CK-2) Rel Index Troponin I (0.01-0.034) ng/mL Total Protein (6.3-8.2) g/dL Albumin (3.5-5.0) g/dL Globulin (1.7-4.1) g/dL Albumin/Globulin Ratio (1.0-2.8) Lipase (23-300) U/L SARS-CoV-2 (PCR) (Negative) Urine Dip Bedside Urine Glucose Negative Bedside Urine Bilirubin - Negative Bedside Urine Ketone - Negative Urine Specific [place] 1.005 Bedside Urine Occult Blood - Negative Bedside Urine pH 8.5 Bedside Urine Protein +/- 15 Bedside Urine Urobilinogen - Negative Bedside Urine Nitrite - Negative Bedside Urine Leukocytes - Negative Esterase Point of care testing: Urine Dip Bedside Urine Glucose Negative Bedside Urine Bilirubin - Negative Bedside Urine Ketone - Negative Urine Specific [place] 1.005 Bedside Urine Occult Blood - Negative Bedside Urine pH 8.5 Bedside Urine Protein +/- 15 Bedside Urine Urobilinogen - Negative Bedside Urine Nitrite - Negative Bedside Urine Leukocytes - Negative Esterase ECG Data Interpretation: 00:09 Sinus rhythm Rate of 76, normal intervals, normal axis No acute ischemic changes 1:44 with chest pain, possible constrast reaction and post ventricular overdrive resolved V tach Sinus at a rate of 83 No acute ischemic changes 2:05 with persistent Chest pain Sinus at rate of 86 Significant right axis shift previously had been at 11 is now at 167. Same electrode monitor placing. Uncertain significance of axis shift No acute ischemic changes AM EKG 0826: Sinus rhythm rate 89 TN 150 QRS of 102 and QTC of 464. No acute ST elevation incomplete right bundle. Patient does appear to have 0.5 mm of depression V3 V4 5 no other changes appreciated from priors. MDM Narrative Medical decision making narrative: 67-year-old woman with increasing lower abdominal pain presents for further evaluation. Labs are fairly reassuring without evidence of urinary tract infection. CT scan is currently pending. 123am she had an episode of ventricular tachycardia that was an abrupt change from her sinus rhythm. When to evaluate patient and she stated that her defibrillator was going off ( it was actually overdrive pacing). After approximately 45-60 seconds her pacemaker successfully converted her rhythm back to sinus. She was relatively on phased by any of this. She states that that seems to be a regular occurrence at night particularly she is lying on her left side. 132 CT scan reveals acute diverticulitis 133am patient is now complaining of chest pain. She is concerned that she is having a reaction to the IV contrast from the CT scan. Notes similar episode after CT scan done in December 2019. She describes it as a bandlike pain around the lower chest/upper abdomen. In talking with her she is alert, appropriate there is no diaphoresis, no wheezing no respiratory distress. All were talking she again goes into ventricular tachycardia and is again overdrive paced out of it. Will give her Solu-Medrol Benadryl fluids and Pepcid presume that this is a contrast reaction. Will review care with Cardiology as well (her primary cardiology care is through [facility]). Will interrogate her pacemaker and see if she has been going in and out of ventricular tachycardia more frequently. When she is feeling but but her will go ahead and give her antibiotics for acute diverticulitis. Will anticipate hospital admission and do COVID swab accordingly. [address] Jeffers, cardiology. Suggested amiodorone for the increased cardiac ectopy. With increasing chest pain, 3rd EKG is obtained. Still unclear if this is contrast allergy related causing the pain or developing cardiac issues. 245 after 2 L of fluid chest pain has completely resolved however hypotension continues to worsen. No respiratory symptoms or respiratory distress. Blood pressure is currently 88/53. I suspect that the majority of her symptoms are related anaphylaxis. Repeat EKGs are not suggesting acute coronary event. I am going to give her a dose of epinephrine to treat the anaphylaxis and presumed hypotension related to anaphylaxis 345 responded well to the initial epinephrine. Is now beginning to drop p ressures again and complaining of central chest pain. She remains well perfused, no erythema no respiratory distress. Case was briefly reviewed with our tele nurse intern for [facility]. She did recommend an epi drip with continued concerns for hypotension with anaphylaxis and developing anaphylactic shock. Phone call to [facility] to see if there are ICU beds available. She did not believe that an ICU bed would be available this evening. Start calling hospitals down the [address] corner to see if there ICU beds available. The patient and her are informed of findings and concerns. Lactic acid and blood cultures will be drawn. Still holding on antibiotics at this time again she is not dramatically ill from her newly diagnosed diverticulitis and I am not concerned for sepsis at this time. 427 central line placed. Epi gtt continues. amiodirone load continues. Runs of V tach continue. Chest pain is minimal. 430 Discussed with /[facility]. will page MICU attending. unclear if beds are available 500 Transfer center recommended calling [facility], doing so now 505 Radiology suggests pulling line back 4-5 cm. this is done and the line is again securred. Pt complaining of more chest tightness. Epi increased and 2mg Morphine given. 510 Repeat trop increasing. Will add heparin as the chest pain continues and she does not have any evidence of bleeding Mank 09/07/22 0732: Patient seen and evaluated by myself independently after being signed out by Dr. Alanis with this very pleasant but somewhat complicated medical patient. This is a 67 year old female with history of cardiac arrhythmias who states she has pacemaker and not a defibrillator in place. Patient presented for complaint abdominal pain is found to have diverticulitis initially not to be septic but patient had episodes of ventricular tachycardia patient did not have any mentation changes or become unstable otherwise after CT scan shortly she was felt to have a reaction to IV contrast and was having chest pain which patient states she had had after a prior CT scan. She did not have any oral changes, vomiting or diarrhea or rash. Patient was given Solu-Medrol, Benadryl and Pepcid for presumed reaction. Case was discussed with Cardiology through [facility] as we do not have Cardiology here. They recommended interrogation of her pacemaker, felt appropriate to give antibiotics and suggested amiodarone for cardiac ectopy. Patient was already having hypotension which would persisted even after 30 cc/kilos bolus and patient has had 2 L of fluid plus continued fluids and has persistently hypotensive and started on epi drip. Serial EKGs did not show dynamic changes but troponin was rising and patient persisted with chest pain. Patient had central line placed this did seem to exacerbate another run of ventricular tachycardia. Patient central line was pulled back. She also received heparin. Patient case was discussed by myself with Dr. Hollins at [facility] who kindly accepts. Reviewed patient's case he requests we make sure to get images to them, suggest changing from epinephrine to phenylephrine drip with a goal systolic of 90 adding Flagyl to antibiotic choices can hold off on steroids at this time and continue with current fluids. We did review patient's prior visits and she looks to have run in the 115-160 range on visit from 2019. I also read patient's labs, CBC CMP are fairly unremarkable AST ALT are 40, initial troponin was negative with risi ng upward in the indeterminate range. Patient is COVID negative. Lactate is negative blood cultures are pending. And CT showed diverticulitis but no signs of perforation or abscess or other acute intra-abdominal changes, chest x-ray post central line did show central line quite low and was pulled back 4-5 cm. Patient updated on recommendations from Dr. Hollins. Critical Care Time <Apryl Lara MD - Last Filed: 09/07/22 05:39> Critical Care Time Critical Care Time: Yes Total Critical Care Time: 136 Attestation: Critical care time is separate from other billable procedures. There is a high probability of a significant, sudden or life-threatening deterioration that requires my full and direct attention, intervention and personal management. This critical care time includes consultation with family and other consulting doctors, review of records, and interpretation of data from labs, EKGs and imaging as well as managements of multiple compounding problems including anaphylactic shock, NSTEMI, acute diverticulitis Discharge Plan Departure Patient Disposition: [facility] Clinical Impression: Anaphylactic shock, Diverticulitis, Pacemaker, Ventricular tachycardia, Non-ST elevation NV (NSTEMI) Anaphylactic reaction Qualifiers: Encounter type: initial encounter Qualified Code(s): T78.2XXA - Anaphylactic shock, unspecified, initial encounter Prescriptions: No Action ondansetron 4 mg tablet,disintegrating 4 mg PO Q4H PRN (Reason: nausea and vomiting) Qty: 30 0RF cholecalciferol (vitamin D3) 4,000 unit capsule 8,000 unit PO DAILY vitamin B complex Tablet 1 tab PO DAILY ciprofloxacin HCl [Cipro] 500 mg tablet 500 mg PO Q12H Qty: 28 0RF Rx Instructions: Start after CT scan is done. metronidazole [Flagyl] 500 mg tablet 500 mg PO Q8H Qty: 42 0RF Rx Instructions: Start after CT scan is done Referrals: Aniceto Blackmon MD [Primary Care Provider] -
--- NOTE | 2022-09-07 00:32 | DI.CT.S_ITS ---
PROCEDURE: CT ABDOMEN PELVIS W CON INDICATIONS: low abdominal pain, fever TECHNIQUE: After the administration of intravenous contrast, axial sections acquired from the lung bases to the pubic symphysis. Coronal and sagittal reformats were performed. For radiation dose reduction, the following was used: automated exposure control, adjustment of mA and/or kV according to patient size. COMPARISON: [facility], CT, CT ABDOMEN PELVIS W CON, 01/19/2020, 10:07. FINDINGS: Image quality: Excellent. Lung bases: Unremarkable. Heart: No significant findings. ABDOMEN: Liver: Unremarkable. Gallbladder: Previously resected Biliary ducts: Unremarkable. Pancreas: Unremarkable. Spleen: Unremarkable. Adrenal Glands: Unremarkable. Kidneys and Ureters: Unremarkable. Stomach and Bowel: Stomach, small bowel loops, and colon are unremarkable. Peritoneum: No abnormal intraperitoneal fluid. No free air. Ventral Wall: No hernias. Abdominal Nodes: No retroperitoneal or mesenteric adenopathy by size criteria. Vessels: Aorta and inferior vena cava are normal in size. PELVIS: Pelvic Organs: Unremarkable. Bladder: Unremarkable. Pelvic Nodes: No enlarged lymph nodes. Miscellaneous: At the left lower quadrant there is acute diverticulitis involving the proximal sigmoid colon, but without peridiverticular abscess.. Bones: Unremarkable. IMPRESSION: Prior cholecystectomy. Acute diverticulitis left lower quadrant involving the proximal sigmoid colon, but no peridiverticular abscess is found. Dictated by: Isaac Anderson M.D. on 09/07/2022 at 1:25 Approved by: Isaac Anderson M.D. on 09/07/2022 at 1:27
[2022-09-07] MEDS: HYDROMORPHONE 0.5 MG INJ IV (00:38)
[2022-09-07] MEDS: ONDANSETRON 4 MG/2 ML INJ IV (00:38)
[2022-09-07] MEDS: SODIUM CHLORIDE 0.9% 1,000 ML 1000 ML IV ×2 (00:39→01:58)
[2022-09-07] MEDS: methylPREDNISolone 125 MG/2 ML VIAL IV (01:41)
[2022-09-07] MEDS: diphenhydrAMINE 50 MG/ML VIAL 25 MG IV (01:43)
[2022-09-07] MEDS: FAMOTIDINE 20 MG/2 ML VIAL IV (01:44)
--- NOTE | 2022-09-07 01:54 | DI.RAD.S_ITS ---
PROCEDURE: XR CHEST 1V INDICATIONS: chest pain TECHNIQUE: One view of the chest was acquired. COMPARISON: [facility], CR, CHEST 1 VIEW, 03/21/2016, 20:04. [facility], CT, CT ABDOMEN PELVIS W CON, 09/07/2022, 0:40. [facility], CR, XR CHEST 1V, 09/07/2022, 4:16. FINDINGS: Surgical changes and devices: A pacer device is seen. Cholecystectomy clips are seen. Lungs and pleura: There is minimal streaky opacity at the left lung base noted. No pleural effusions or pneumothorax. Mediastinum: Mediastinal contours appear normal. Heart size is normal. Bones and chest wall: No suspicious bony lesions. Age-appropriate bony degenerative changes are seen. Overlying soft tissues appear unremarkable. IMPRESSION: Minimal streaky opacity can be seen at the left lung base, which is likely related to atelectasis. Note: No significant discrepancy from the preliminary report. Dictated by: Gopal Villatoro M.D. on 09/07/2022 at 7:19 Approved by: Gopal Villatoro M.D. on 09/07/2022 at 7:20
[2022-09-07] MEDS: NITROGLYCERIN 0.4 MG SL TAB SL (01:56)
[2022-09-07] MEDS: AMIODARONE 150 MG/100 ML PIGGYBACK 600 MG IV (02:02)
--- NOTE | 2022-09-07 02:11 | PC.NURSE ---
0125: Pt returned from CT scan and the child monitor showed a run of Vtach. Provider aware. Pt checked on by this RN and provider who reported feeling some chest pain. Pt stated my pacemaker just went off. Pt no longer in Vtach. EKG done. Pacemaker interrogated. Shortly after interrogation, pt reports a return of chest pain to 8/10 that feels like a vice. Verbal order for 0.4mg of nitro x3 as needed given. One dose of nitro given and pt reported 0/10 pain after 5 minutes. Provider aware. Pt desated to 91% and was placed on 2 L NC. Doctor wrote order for amiodarone per protocol. Amiodarone given per order/protocol. 0224: Pt continues to deny chest pain and SOB. This RN checking on patient frequently.
[2022-09-07] MEDS: SODIUM CHLORIDE 0.9% 1,000 ML 150 ML IV ×2 (02:13→08:50)
[2022-09-07] MEDS: AMIODARONE 360 MG/200 ML PIGGYBACK 33.33 MG IV (02:16)
[2022-09-07 02:17] LABS: Add Manual Diff / Slide Review NO; Basophils Absolute Auto 200 /uL (0-100); Basophils Percent Auto 2.3 % (0-2); Eosinophils Absolute Auto 100 /uL (0-450); Eosinophils Percent Auto 0.8 % (2-4); Hematocrit 36.5 % (36-46); Hemoglobin 12.6 g/dL (12.0-16.0); Lymphocytes Absolute Auto 800 /uL (1100-4500); Lymphocytes Percent Auto 9.4 % (25-40); Mean Corpuscular HGB Conc 34.6 % (30-36); Mean Corpuscular Hemoglobin 31.6 PG (26-34); Mean Corpuscular Volume 91.3 fL (80-100); Monocytes Absolute Auto 700 /uL (0-900); Monocytes Percent Auto 7.7 % (3-14); Neutrophils Absolute Auto 6900 /uL (1500-7000); Neutrophils Percent Auto 79.8 % (50-75); Platelet Count 208 X10^3/uL (150-400); White Blood Cell Count 8.7 X10^3/uL (4.5-11.0)
[2022-09-07 02:21] LABS: Alanine Aminotransferase 40 IU/L (<35); Albumin 3.3 g/dL (3.5-5.0); Albumin Globulin Ratio 1.3 (1.0-2.8); Alkaline Phosphatase 96 U/L (38-126); Aspartate Aminotransferase 40 IU/L (14-36); BUN Creatinine Ratio 14.8 (6-22); Bilirubin Total 0.3 mg/dL (0.2-1.3); Blood Urea Nitrogen 9 mg/dL (7-17); Calcium 7.4 mg/dL (8.4-10.2); Carbon Dioxide 23 mmol/L (22-32); Chloride 107 mmol/L (98-107); Creatine Kinase < 20 U/L (30-135); Estimated Glomerular Filt Rate > 60 mL/min (>60); Globulin 2.5 g/dL (1.7-4.1); Glucose 102 mg/dL (80-110); HEMOLYSIS < 15 (0-50); Lipase 62 U/L (23-300); Potassium 3.9 mmol/L (3.4-5.1); Sodium 135 mmol/L (137-145); Total Protein 5.8 g/dL (6.3-8.2)
[2022-09-07 02:22] LABS: Magnesium 1.9 mg/dL (1.6-2.3)
[2022-09-07 02:28] LABS: COVID19 -Nasal RAPID Negative (Negative)
[2022-09-07 02:33] LABS: Troponin I < 0.012 ng/mL (0.01-0.034)
[2022-09-07] MEDS: EPINEPHrine 1 MG/ML (02:53)
--- NOTE | 2022-09-07 03:24 | PC.NURSE ---
Pt reports 2.5/10 chest pain. Provider aware. Provider also aware of vital signs.
[2022-09-07] MEDS: EPINEPHrine 4 MG in DEXTROSE 5% IN WATER 246 ML 3.75 MG IV (03:44)
--- NOTE | 2022-09-07 04:01 | PC.NURSE ---
0401 MD at the bedside explaining plan of care as RN sets up for central line placement. 0421 7F Triple lumen placed on right side by Dr. Lara. Patient tolerated well. x-ray arrives at bedside to confirm placement 0429 Patient denies any chest pain at this point in time. 0430. Dr. Lara confirms placement of central line
--- NOTE | 2022-09-07 04:43 | DI.RAD.S_ITS ---
PROCEDURE: XR CHEST 1V INDICATIONS: Central line placement TECHNIQUE: One view of the chest was acquired. COMPARISON: [facility], CR, CHEST 1 VIEW, 03/21/2016, 20:04. [facility], CT, CT ABDOMEN PELVIS W CON, 09/07/2022, 0:40. [facility], CR, XR CHEST 1V, 09/07/2022, 1:57. FINDINGS: Surgical changes and devices: A right-sided central line is been placed. The tip is seen overlying right atrium, 3 4 cm below the cavoatrial junction. A pacer device is seen. The leads are seen in stable positions. Cholecystectomy clips are seen. Lungs and pleura: Minimal left lung base atelectasis is again seen. No pleural effusions or pneumothorax. Mediastinum: Mediastinal contours appear normal. Heart size is normal. Bones and chest wall: No suspicious bony lesions. Age-appropriate bony degenerative changes are seen. Overlying soft tissues appear unremarkable. IMPRESSION: The tip of the central line overlies the right atrium. Please consider withdrawal approximately 5 cm, if clinically appropriate. No pneumothorax is seen. Postoperative and degenerative changes are seen. Note: No significant discrepancy from the preliminary report. Dictated by: Gopal Villatoro M.D. on 09/07/2022 at 7:27 Approved by: Gopal Villatoro M.D. on 09/07/2022 at 7:29
[2022-09-07 04:55] LABS: Troponin I 0.053 ng/mL (0.01-0.034)
--- NOTE | 2022-09-07 05:08 | PC.NURSE ---
Patient reporting chest tightness. MD at the bedside. Verbal to increase epi drip to treat CP.
[2022-09-07] MEDS: MORPHINE 2 MG/ML INJ IV (05:15)
[2022-09-07] MEDS: cefTRIAXone 2,000 MG in SODIUM CHLORIDE 0.9% 100 ML 200 MG IV (05:23)
[2022-09-07] MEDS: HEPARIN 5,000 UNIT/ML VIAL 4000 UNIT IV (05:28)
[2022-09-07 05:29] LABS: Lactate (Lactic Acid) 0.7 mmol/L (0.7-2.1)
[2022-09-07] MEDS: HEPARIN DRIP 25,000 UNIT/500 ML IV.SOLN 12.846 UNIT IV (05:29)
[2022-09-07 07:24] LABS: Troponin I 0.099 ng/mL (0.01-0.034)
[2022-09-07 07:30] LABS: PTT Partial Thromboplastin Tim > 150 SECONDS (26-36)
--- NOTE | 2022-09-07 07:54 | PC.NURSE ---
First PTT that was drawn was at 0700 which was 1.5 hours after Heparin bolus and heparin gtt being started. Lab called and reported PTT > 150 Dr. Hassan aware. The 0700 was the first PTT that was drawn. We will not adjust Heparin Gtt according to the ptt>150. Next PTT drawn will be at 1130 (6 hours after initiation of Heparin)
[2022-09-07] MEDS: PHENYLEPHRINE 20,000 MCG in DEXTROSE 5% IN WATER 250 ML 75 MCG IV (08:30)
[2022-09-07] MEDS: AMIODARONE 360 MG/200 ML PIGGYBACK 16.7 MG IV (08:37)
[2022-09-07] MEDS: metroNIDAZOLE 500 MG/100 ML PIGGYBACK 100 MG IV (08:40)
[2022-09-08 00:48] LABS: Enterococcus species Not Detected (Not Detect); Listeria monocytogenes Not Detected (Not Detect); Staphylococcus species Detected (Not Detect)
[2022-09-08 00:49] LABS: Acinetobacter baumannii Not Detected (Not Detect); Candida albicans Not Detected (Not Detect); Candida glabrata Not Detected (Not Detect); Candida krusei Not Detected (Not Detect); Candida parapsilosis Not Detected (Not Detect); Candida tropicalis Not Detected (Not Detect); E. coli Not Detected (Not Detect); Enterobacter cloacae complex Not Detected (Not Detect); Enterobacteriaceae species Not Detected (Not Detect); Haemophilus influenzae Not Detected (Not Detect); Methicillin-resistant gene Not Detected (Not Detect); Neisseria meningitidis Not Detected (Not Detect); Proteus species Not Detected (Not Detect); Pseudomonas aeruginosa Not Detected (Not Detect); Serratia marcescens Not Detected (Not Detect); Streptococcus agalactiae (Gr B Not Detected (Not Detect); Streptococcus pneumonia Not Detected (Not Detect); Streptococcus pyogenes (Gr A) Not Detected (Not Detect); Streptococcus species Not Detected (Not Detect)
== END 2022-09-07 09:30 | disposition short-term general hospital (02) ==
PROVIDERS: Emergency Medicine; Emergency Provider Emergency Medicine; PCP Internal Medicine
DX: I21.4 Non-ST elevation (NSTEMI) myocardial infarction (principal); I47.20 Ventricular tachycardia, unspecified; T78.2XXA Anaphylactic shock, unspecified, initial encounter; R07.9 Chest pain, unspecified; K57.92 Diverticulitis of intestine, part unspecified, without perforation or abscess without bleeding; Z95.0 Presence of cardiac pacemaker
CPT/HCPCS: 36415; 71045; 74177; 80053; 81003; 82550; 83605; 83690; 83735; 84484; 85025; 85730; 87040; 87077; 87147; 87150; 87186; 87635; 93005; 93010; 96365; 96366; 96368; 96375; 99285; 99291; 99292; C9803; J0171; J0282; J0696; J1170; J1200; J1644; J2270; J2405; J2930; Q9967

== ENCOUNTER → 2022-09-18 08:34 | Outpatient (CLI) | payer MEDICARE, OTHER, SELFPAY ==
--- NOTE | 2022-09-18 21:18 | DI.NM.S_ITS ---
DATE OF SERVICE: 09/18/2022 PROCEDURE: Exercise perfusion study. INDICATION: Chest pain with underlying sick sinus syndrome. CARDIAC STRESS: The patient underwent exercise perfusion study under the supervision of an attending staff. She walked on Chidi protocol for a total of 6 minutes, 30 seconds, achieved 93 percent of target heart rate with maximum heart rate 142 beats per minute. Baseline blood pressure 115/70 mmHg. Peak blood pressure 154/88 mmHg with adequate response. The patient achieved 7 METs of workload. COSME positive 17 percent. No anginal symptoms. Had shortness of breath. Baseline rhythm was sinus. During stress, no convincing ischemic changes seen. No significant arrhythmias seen. RAW DATA: There is breast shadow seen. GATED STUDY: Resting LV ejection fraction 92 and stress LV ejection fraction 97 percent without any obvious wall motion abnormalities. This high ejection fraction likely due to low end-diastolic volume of 49 mL. TID ratio 0.50, which is within normal limits. Lung/heart ratio 0.32, which is within normal limits. MYOCARDIAL PERFUSION SCAN: Stress supine and stress prone images revealed normal myocardial perfusion. Resting supine images revealed mildly decreased perfusion of inferolateral wall. CONCLUSION: This is a normal myocardial perfusion study with normal myocardial perfusion during stress supine and stress prone images. Diminished exercise tolerance. Normal hemodynamic response. No anginal symptoms. No significant ischemic electrocardiographic changes or arrhythmias seen. Overall, low-risk myocardial perfusion scan. Marysol Jacques - Heather/alan doc#: [id number]/job#: [id number] dd: 09/18/2022 16:46:00 dt: 09/18/2022 21:03:00 DICTATING MD/COPIES TO: Eunice Garcia MD COPIES MNE: GWENDOLYN;
== END ==
PROVIDERS: PCP Internal Medicine; Referring Provider Internal Medicine; Visit Provider Internal Medicine
DX: I49.5 Sick sinus syndrome (principal); R07.9 Chest pain, unspecified
CPT/HCPCS: 78452; 93017; A9502

== ENCOUNTER → 2023-05-21 10:54 | Outpatient (CLI) | payer MEDICARE, OTHER, SELFPAY ==
--- NOTE | 2023-05-21 | DI.MG.S_ITS ---
BILATERAL DIGITAL SCREENING MAMMOGRAM 3D/2D WITH CAD: 05/21/2023 CLINICAL: Routine screening. Family history of breast cancer. Comparison is made to exams dated: 01/09/2022 mammogram, 12/13/2020 mammogram, and 07/29/2018 mammogram - [facility]. Both breasts are heterogeneously dense, which may obscure small masses (category c / 51-75% glandular tissue). Current study was also evaluated with a Computer Aided Detection (CAD) system. No significant masses, calcifications, or other findings are seen in either breast. There has been no significant interval change. IMPRESSION: NEGATIVE There is no mammographic evidence of malignancy. A 1 year screening mammogram is recommended. Based on Tyrer-Cuzick model (a risk assessment model), the patient's lifetime risk is 22.2% and her 10 year risk is 12.1%. If a patient has an elevated risk, a more comprehensive evaluation should be considered and/or a referral to a genetic counselor. The [place] [employer], [place] [employer], and NCCN Guidelines advise the consideration of Breast MRI as an adjunct to screening mammography in patients whose Lifetime risk to develop breast cancer is 20% or higher. This exam was interpreted at Station ID: [id number]. NOTE: For mammograms, a report in lay terms will be sent to the patient. Approximately 15% of breast malignancies will not be visualized mammographically. In the management of a palpable breast mass, a negative mammogram must not discourage biopsy of a clinically suspicious lesion. Electronically Signed By: Jonathon xavier/blayne:05/21/2023 18:13:55 letter sent: Normal Exam ACR BI-RADS Category 1: Negative 3341F
== END ==
PROVIDERS: PCP Internal Medicine; Referring Provider Internal Medicine; Visit Provider Internal Medicine
DX: Z12.31 Encounter for screening mammogram for malignant neoplasm of breast (principal); Z80.3 Family history of malignant neoplasm of breast
CPT/HCPCS: 77063; 77067

== ENCOUNTER 2024-06-14 22:19 | Emergency (ER) | payer MEDICARE, OTHER, SELFPAY ==
[2024-06-14 22:26] VITALS: BP 144/67; PULSE 75; RESP 18; TEMP 36.3; O2SAT 100; BMI 23.0
--- NOTE | 2024-06-14 23:15 | EKG_ITS ---
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
[2024-06-14 23:19] LABS: Bacteria Urine None Seen; Culture Indicated Urine Cult Not Indicated; RBC Urine 0-1/HPF (0-5/HPF); Squamous Epithelial Cell Urine 0-1 /HPF (0-5/HPF); Urine Volume 10mL (spun); WBC Urine 0-1/HPF (0-5/HPF)
[2024-06-14 23:25] LABS: Add Manual Diff / Slide Review NO; Basophils Absolute Auto 0 /uL (0-100); Basophils Percent Auto 0.6 % (0-2); Eosinophils Absolute Auto 100 /uL (0-450); Eosinophils Percent Auto 2.5 % (2-4); Hematocrit 40.1 % (36-46); Hemoglobin 13.8 g/dL (12.0-16.0); Lymphocytes Absolute Auto 1800 /uL (1100-4500); Lymphocytes Percent Auto 30.4 % (25-40); Mean Corpuscular HGB Conc 34.5 % (30-36); Mean Corpuscular Hemoglobin 31.5 PG (26-34); Mean Corpuscular Volume 91.4 fL (80-100); Monocytes Absolute Auto 500 /uL (0-900); Monocytes Percent Auto 8.8 % (3-14); Neutrophils Absolute Auto 3300 /uL (1500-7000); Neutrophils Percent Auto 57.7 % (50-75); Platelet Count 301 X10^3/uL (150-400); Red Blood Cell Count 4.39 X10^6/uL (4.0-5.2); Red Cell Distribution Width 12.9 % (11.6-14.8); White Blood Cell Count 5.8 X10^3/uL (4.5-11.0)
[2024-06-14 23:33] LABS: Alanine Aminotransferase 26 IU/L (<35); Albumin 4.1 g/dL (3.5-5.0); Albumin Globulin Ratio 1.5 (1.0-2.8); Alkaline Phosphatase 76 U/L (38-126); Aspartate Aminotransferase 27 IU/L (14-36); BUN Creatinine Ratio 22.2 (6-22); Bilirubin Total 0.4 mg/dL (0.2-1.3); Blood Urea Nitrogen 14 mg/dL (7-17); Calcium 9.1 mg/dL (8.4-10.2); Carbon Dioxide 20 mmol/L (22-32); Chloride 109 mmol/L (98-107); Estimated Glomerular Filt Rate > 60 mL/min (>60); Globulin 2.8 g/dL (1.7-4.1); Glucose 94 mg/dL (80-110); HEMOLYSIS < 15 (0-50); Lipase 77 U/L (23-300); Sodium 136 mmol/L (137-145); Total Protein 6.9 g/dL (6.3-8.2)
[2024-06-14 23:42] VITALS: BP 115/55; PULSE 60; RESP 24; O2SAT 96
[2024-06-15] VITALS (10 sets, daily range): BP systolic 111–151; BP diastolic 56–71; PULSE 58–74; RESP 18–31; O2SAT 91–99
--- NOTE | 2024-06-15 04:00 | ED_ITS ---
HPI - Abdominal Pain General Chief Complaint: Abdominal Pain Stated Complaint: lower abd pain Time Seen by Provider: 06/15/24 03:53 Source: patient Mode of arrival: Ambulatory History of Present Illness HPI narrative: 69-year-old female with history of diverticulitis, having left pelvic area discomfort and suprapubic area discomfort since 1:00 p.m. yesterday, similar to her previous diverticulitis flares, no injury trauma new activities, no black or red stools, last bowel movement yesterday afternoon that did not seem to help the pain. No dysuria or frequency of urination, no history of kidney stones, no flank pain. No fevers or chills. She denies cough shortness of breath. She denies loose stools. No nausea or vomiting. Related Data Home Medications Medication Instructions Recorded Confirmed cholecalciferol (vitamin D3) 100 8,000 unit PO DAILY 01/12/20 01/12/20 mcg (4,000 unit) capsule vitamin B complex 1 tab PO DAILY 01/12/20 01/12/20 Previous Rx's Medication Instructions Recorded ciprofloxacin HCl 500 mg tablet 500 mg PO Q12H diverticulitis #28 01/13/20 (Cipro) tabs metronidazole 500 mg tablet 500 mg PO Q8H diverticulitis #42 01/13/20 (Flagyl) tabs ondansetron 4 mg disintegrating 4 mg PO Q4H PRN nausea and 01/25/20 tablet vomiting #30 tabs Allergies Allergy/AdvReac Type Severity Reaction Status Date / Time Iodinated Contrast Media Allergy Severe questionable Verified 09/07/22 08:53 anaphylaxis, chest pain, v tach Sulfa (Sulfonamide Allergy Intermediate rash Verified 09/07/22 05:09 Antibiotics) [SULFA (SULFONAMIDE ANTIBIOTICS)] Review of Systems Review of Systems Narrative: per HPI Patient History Social History Smoking Status: Never smoker alcohol intake: current (1 glass of wine or 2 per week) substance use type: does not use Smoking Status: Never smoker alcohol intake frequency: holidays/special occasions only Substance Use Type: does not use Exam Narrative Exam Narrative: GENERAL: Well-developed patient, in mild distress. HEAD: Atraumatic. Normocephalic. EYES: Pupils equal round and reactive. Extraocular motions intact. No scleral icterus. No injection or drainage. ENT: Nose without bleeding, purulent drainage. Throat without erythema, tonsillar hypertrophy or exudate. Airway patent. NECK: Trachea midline. Non tender CARDIOVASCULAR: Regular rate and rhythm without murmurs, gallops, or rubs. RESPIRATORY: Clear to auscultation. Breath sounds equal bilaterally. No wheezes, rales, or rhonchi. GASTROINTESTINAL: Mild tenderness left lower quadrant, no guarding or rebound, no ventral hernia obvious, no skin changes redness or warmth or abrasions. Nondistended. EXTREMITIES: No edema or joint tenderness. BACK: Nontender without deformity or crepitance. No flank tenderness. NEURO: AOx3. Nonfocal neuro exam SKIN: No rash or erythema of visible areas Initial Vital Signs Initial Vital Signs: Vital Signs Temperature 97.4 F L 06/14/24 22:26 Pulse Rate 75 06/14/24 22:26 Respiratory Rate 18 06/14/24 22:26 Blood Pressure 144/67 H 06/14/24 22:26 Pulse Oximetry 100 06/14/24 22:26 Oxygen Delivery Method Room Air 06/14/24 22:26 Course Orders Ordered: Discontinued Medications Al Hydrox/Mg Hydrox/Simethicone (Mag Hydrox/Alum/Simeth 30 Ml Udc) 30 ml PO NOW ONE Stop: 06/15/24 06:02 Last Admin: 06/15/24 06:23 Dose: 30 ml Documented By: NATALI Hydromorphone HCl (Hydromorphone 0.5 Mg Inj) 0.5 mg IV NOW ONE Stop: 06/15/24 04:14 Last Admin: 06/15/24 04:28 Dose: 0.5 mg Documented By: NATALI Sodium Chloride (Normal Saline 0.9%) 1,000 mls @ 1,000 mls/hr IV BOLUS ONE Stop: 06/15/24 05:14 Last Infusion: 06/15/24 05:57 Dose: Infused Documented By: Admin: 06/15/24 04:28 Dose: 1,000 mls/hr Documented By: NATALI Ondansetron HCl (Ondansetron 4 Mg/2 Ml Inj) 4 mg IV NOW PRN PRN Reason: Nausea And Vomiting Ondansetron HCl (Ondansetron 4 Mg Odt) 4 mg PO NOW PRN PRN Reason: Nausea And Vomiting Ondansetron HCl (Ondansetron 4 Mg/2 Ml Inj) 4 mg IV NOW ONE Stop: 06/15/24 04:14 Last Admin: 06/15/24 04:28 Dose: 4 mg Documented By: NATALI Sodium Biphosphate/Sodium Phosphate (Fleets Enema) 1 each CA NOW ONE Stop: 06/15/24 06:03 Last Admin: 06/15/24 06:23 Dose: 1 each Documented By: NATALI Vital Signs Vital signs: Vital Signs - 8 hr 06/14/24 23:42 06/15/24 03:19 06/15/24 03:20 Pulse Rate 60 Respiratory Rate 24 Blood Pressure 115/55 L 116/71 Pulse Oximetry 96 98 Oxygen Delivery Method Room Air 06/15/24 03:20 06/15/24 03:30 06/15/24 04:00 Pulse Rate 61 60 62 Respiratory Rate Blood Pressure Pulse Oximetry 96 94 91 Oxygen Delivery Method 06/15/24 04:00 06/15/24 04:30 06/15/24 04:30 Pulse Rate 58 L Respiratory Rate 18 Blood Pressure 115/56 L 151/71 H Pulse Oximetry 93 Oxygen Delivery Method 06/15/24 04:51 06/15/24 04:51 06/15/24 05:00 Pulse Rate 59 L Respiratory Rate Blood Pressure 111/60 124/67 Pulse Oximetry 94 Oxygen Delivery Method 06/15/24 05:00 06/15/24 05:30 06/15/24 05:31 Pulse Rate 63 65 65 Respiratory Rate 24 31 H Blood Pressure Pulse Oximetry 99 96 96 Oxygen Delivery Method 06/15/24 05:31 06/15/24 06:00 06/15/24 06:00 Pulse Rate 74 Respiratory Rate 18 Blood Pressure 135/67 129/62 Pulse Oximetry 96 Oxygen Delivery Method MDM - Abdominal Pain Lab Data Attestation: I reviewed the patient's lab results. 06/14/24 23:08 06/14/24 23:08 Labs: Lab Results 06/14/24 06/14/24 06/15/24 Range/Units 22:30 23:08 05:22 WBC 5.8 (4.5-11.0) X10^3/uL RBC 4.39 (4.0-5.2) X10^6/uL Hgb 13.8 (12.0-16.0) g/dL Hct 40.1 (36-46) % MCV 91.4 (80-100) fL MCH 31.5 (26-34) PG MCHC 34.5 (30-36) % RDW 12.9 (11.6-14.8) % Plt Count 301 (150-400) X10^3/uL Neut % (Auto) 57.7 (50-75) % Lymph % (Auto) 30.4 (25-40) % [place] % (Auto) 8.8 (3-14) % Eos % (Auto) 2.5 (2-4) % Baso % (Auto) 0.6 (0-2) % Neut # (Auto) 3300 (7585-4188) /uL Lymph # (Auto) 1800 (8130-7060) /uL [place] # (Auto) 500 (0-900) /uL Eos # (Auto) 100 (0-450) /uL Baso # (Auto) 0 (0-100) /uL Sodium 136 L (137-145) mmol/L Potassium 4.0 (3.4-5.1) mmol/L Chloride 109 H (98-107) mmol/L Carbon Dioxide 20 L (22-32) mmol/L BUN 14 (7-17) mg/dL Creatinine 0.63 (0.52-1.04) mg/dL Estimated GFR > 60 (>60) mL/min BUN/Creatinine Ratio 22.2 H (6-22) Glucose 94 (80-110) mg/dL Calcium 9.1 (8.4-10.2) mg/dL Total Bilirubin 0.4 (0.2-1.3) mg/dL AST 27 (14-36) IU/L ALT 26 (<35) IU/L Alkaline Phosphatase 76 (38-126) U/L Troponin I < 0.012 < 0.012 (0.01-0.034) ng/mL Total Protein 6.9 (6.3-8.2) g/dL Albumin 4.1 (3.5-5.0) g/dL Globulin 2.8 (1.7-4.1) g/dL Albumin/Globulin Ratio 1.5 (1.0-2.8) Lipase 77 (23-300) U/L Urine RBC 0-1/hpf (0-5/HPF) Urine WBC 0-1/hpf (0-5/HPF) Ur Squamous Epith Cells 0-1 /hpf (0-5/HPF) Urine Bacteria None seen (None) Ur Culture Indicated? Cult not indicated Vol Urine Centrifuged 10ml (spun) Point of care testing: Urine Dip Bedside Urine Glucose Negative Bedside Urine Bilirubin - Negative Bedside Urine Ketone - Negative Urine Specific [place] 1.005 Bedside Urine Occult Blood - Negative Bedside Urine pH 7 Bedside Urine Protein - Negative Bedside Urine Urobilinogen - Negative Bedside Urine Nitrite - Negative Bedside Urine Leukocytes +/- 15 Esterase ECG Data Attestation: I personally reviewed and interpreted this ECG as follows: Interpretation: 2315, Sinus bradycardia with rate 58, no obvious ST segment elevation or depressions, T-wave inversion lead 3, upright T-waves leads 2 and F. CA 196, QRS 88, QTC 408. 0508, sinus bradycardia with rate of 59, T-wave flattening lead 3 similar to prior study, no significant change from prior study earlier this visit. CA 86. QTC 427. QRS 86. MDM Narrative Medical decision making narrative: 69-year-old female with left pelvic pain similar to previous flare diverticulitis, since yesterday afternoon, some tenderness left lower quadrant on exam more so than suprapubic region. No history of urinary tract infections recent, denies dysuria frequency of urination symptoms. No groin hernia obvious on exam, no ventral hernia obvious on exam. DDx consider recurrence of diverticulitis, also would consider colitis, ureteral stone, UTI, groin hernia, musculoskeletal, uterine/ovarian cause of symptoms, other. Patient would like pain medication, IV Dilaudid/Zofran. IV fluid bolus. Screening labs unremarkable. Patient has severe allergy to IV contrast. CT abdomen and pelvis noncontrast study ordered. Keep NPO. CT abdomen and pelvis noncontrast. Impressions: ?No evidence of colitis diverticulitis bowel obstruction obstructive uropathy or acute appendicitis. Large volume of stool within the colon compatible with constipation.? See tele radiology report Chest x-ray negative study. See radiology report Patient given copy of her CT report, discussed enema, she would like an enema here. She would like take MiraLax [id number] laxative at home. Home with . Return precautions discussed. Critical Care Time Critical Care Time Critical Care Time: Yes Total Critical Care Time: 31 Attestation: The high probability of a clinically significant, sudden or life threatening deterioration of the [gastrointestinal, abdominopelvic, genitourinary] system(s) required my full and direct attention, intervention and personal management. The aggregate critical care time was [31] minutes. This time is in addition to time spent performing reported procedures but includes the following: [x] Data Review and interpretation [x] Patient assessment and monitoring of vital signs [x] Documentation [x] Medication orders and management Discharge Plan Departure Patient Disposition: Home Clinical Impression: Left lower quadrant abdominal pain, Epigastric abdominal pain, Constipation Instructions: DI for Abdominal Pain-Adult Activity Restrictions/Additional Instructions: History of diverticulitis, left lower abdominal discomfort, history of severe IV contrast allergy, noncontrast CT abdomen and pelvis imaging therefore performed. CT abdomen and pelvis imaging showed no diverticulitis, nor any other acute process, did mention abundant stool in the colon, which itself could also cause crampy abdominal pain. During your evaluation you had epigastric area upper abdominal discomfort. EKG and serial blood tests were not showing evidence of heart attack. Trial of Maalox antacid in case it is acid related problems in that area. Enema administered in the emergency department. Consider ierx-[id number] magnesium citrate or MiraLax laxative. Recheck symptoms with your regular doctor if not improving in the next couple of days. Return to this/nearest emergency department for any change worsening symptoms or any concerns prior Prescriptions: No Action ondansetron 4 mg tablet,disintegrating 4 mg PO Q4H PRN (Reason: nausea and vomiting) Qty: 30 0RF cholecalciferol (vitamin D3) 4,000 unit capsule 8,000 unit PO DAILY vitamin B complex Tablet 1 tab PO DAILY ciprofloxacin HCl [Cipro] 500 mg tablet 500 mg PO Q12H Qty: 28 0RF Rx Instructions: Start after CT scan is done. metronidazole [Flagyl] 500 mg tablet 500 mg PO Q8H Qty: 42 0RF Rx Instructions: Start after CT scan is done Referrals: Aniceto Blackmon MD [Primary Care Provider] - Stand Alone Forms: Patient Portal/API
--- NOTE | 2024-06-15 04:14 | DI.CT.S_ITS ---
PROCEDURE: CT ABDOMEN PELVIS WO CON INDICATIONS: LLQ>RLQ pain, hx diverticulitis TECHNIQUE: Axial sections were acquired from the lung bases to the pubic symphysis. Coronal and sagittal reformats were performed. For radiation dose reduction, the following was used: automated exposure control, adjustment of mA and/or kV according to patient size. COMPARISON: None. FINDINGS: Image quality: Diagnostic. Lower Chest: No significant findings. URINARY: Right Kidney: No stones or hydronephrosis. Right Ureter: No hydroureter. Left Kidney: No stones or hydronephrosis. Left Ureter: No hydroureter. Bladder: Normal wall thickness. No stones. ABDOMEN: Liver: No contour-deforming solid mass. Gallbladder: Removed. Biliary ducts: No biliary dilation. Pancreas: No ductal dilation. Spleen: Size is within normal limits. Adrenal Glands: No adrenal nodules. Stomach and Bowel: Normal colonic caliber, without significant wall thickening. Colonic diverticula without inflammatory change. Prominent colonic stool. No obstruction. Peritoneum: No abnormal intraperitoneal fluid. No free air. Ventral Wall: Small ventral hernia. Abdominal Nodes: No enlarged retroperitoneal or mesenteric lymph nodes. Vessels: Aorta and inferior vena cava are normal in size. PELVIS: Pelvic Organs: Unremarkable. Pelvic Nodes: Unremarkable. Miscellaneous: No inguinal hernias are seen. Bones: Unremarkable. IMPRESSION: No obstructing stones or hydronephrosis. Diverticulosis. The above findings are concordant with preliminary report. Dictated by: Holli Dodd M.D. on 06/15/2024 at 8:40 Approved by: Holli Dodd M.D. on 06/15/2024 at 8:44
[2024-06-15] MEDS: ONDANSETRON 4 MG/2 ML INJ IV (04:28)
[2024-06-15] MEDS: HYDROMORPHONE 0.5 MG INJ IV (04:28)
[2024-06-15] MEDS: SODIUM CHLORIDE 0.9% 1,000 ML 1000 ML IV (04:28)
--- NOTE | 2024-06-15 05:00 | PC.NURSE ---
Patient called and said she is having sudden onset sharp center chest pain that radiates to her back. 06/01. States this feels different. Denies nausea. No diaphoresis. Darrius notified immediately. EKG being done now, vital signs stable.
--- NOTE | 2024-06-15 05:07 | DI.RAD.S_ITS ---
PROCEDURE: XR CHEST 1V INDICATIONS: chest pain TECHNIQUE: One view of the chest was acquired. COMPARISON: [facility], CR, XR CHEST 1V, 09/07/2022, 4:16. FINDINGS: Surgical changes and devices: Pacemaker. Cholecystectomy clips. Lungs and pleura: Lungs are clear. No pleural effusions or pneumothorax. Mediastinum: Mediastinal contours appear normal. Heart size is normal. Bones and chest wall: No suspicious bony lesions. Overlying soft tissues appear unremarkable. IMPRESSION: No acute pulmonary process. The above findings are concordant with preliminary report. Dictated by: Holli Dodd M.D. on 06/15/2024 at 8:40 Approved by: Holli Dodd M.D. on 06/15/2024 at 8:40
--- NOTE | 2024-06-15 05:08 | EKG_ITS ---
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
[2024-06-15 05:35] LABS: Troponin I < 0.012 ng/mL (0.01-0.034)
[2024-06-15 05:59] LABS: Troponin I < 0.012 ng/mL (0.01-0.034)
[2024-06-15] MEDS: MAG HYDROX/ALUM/SIMETH 30 ML UDC PO (06:23)
[2024-06-15] MEDS: FLEETS ENEMA 1 EACH PR (06:23)
== END 2024-06-15 06:30 | disposition home or self-care (01) ==
PROVIDERS: Emergency Provider Emergency Medicine; PCP Internal Medicine
DX: R10.32 Left lower quadrant pain (principal); R10.13 Epigastric pain; R00.1 Bradycardia, unspecified; K59.00 Constipation, unspecified
CPT/HCPCS: 36415; 71045; 74176; 80053; 81003; 81015; 83690; 84484; 85025; 93005; 96361; 96374; 96375; 99284; J1170; J2405

== ENCOUNTER → 2024-08-04 09:34 | Outpatient (CLI) | payer MEDICARE, OTHER, SELFPAY ==
--- NOTE | 2024-08-04 09:35 | DI.MG.S_ITS ---
BILATERAL DIGITAL SCREENING MAMMOGRAM 3D/2D WITH CAD: 08/04/2024 CLINICAL: Routine screening. Family history of breast cancer. Comparison is made to exams dated: 05/21/2023 mammogram - [facility], 01/09/2022 mammogram, and 12/13/2020 mammogram - [facility]. There are scattered areas of fibroglandular density (category b / 25%-50% glandular tissue). Current study was also evaluated with a Computer Aided Detection (CAD) system. No significant masses, calcifications, or other findings are seen in either breast. There has been no significant interval change. IMPRESSION: NEGATIVE There is no mammographic evidence of malignancy. A 1 year screening mammogram is recommended. Based on the Tyrer Cuzick model (a risk assessment model) the patient's lifetime risk is 13.7% and her 10 year risk is 8.2%. According to the ACR, ACS, and NCCN guidelines, an annual breast MRI exam along with mammogram is recommended if the patient's lifetime risk is 20% or greater. This exam was interpreted at Station ID: [id number]. NOTE: For mammograms, a report in lay terms will be sent to the patient. Approximately 15% of breast malignancies will not be visualized mammographically. In the management of a palpable breast mass, a negative mammogram must not discourage biopsy of a clinically suspicious lesion. Electronically Signed By: Johnathan davis/blayne:08/04/2024 17:47:21 letter sent: Normal Exam ACR BI-RADS Category 1: Negative 3341F
== END ==
LOC: MAMMO 09:34
PROVIDERS: PCP Internal Medicine; Referring Provider Internal Medicine; Visit Provider Internal Medicine
DX: Z12.31 Encounter for screening mammogram for malignant neoplasm of breast (principal); Z80.3 Family history of malignant neoplasm of breast
CPT/HCPCS: 77063; 77067

== ENCOUNTER → 2025-09-26 08:32 | Outpatient (CLI) | payer MEDICARE, OTHER, SELFPAY ==
--- NOTE | 2025-09-26 08:35 | DI.MG.S_ITS ---
MM screening mammo BI: 09/26/2025. BI-RADS: 1 CLINICAL: 70-year old female for bilateral screening mammogram. Tyrer-Cuzick lifetime risk of 7.6%. Current reported family history of breast cancer: mother and maternal aunt. PRIOR EXAMS 08/04/2024, 05/21/2023, 01/09/2022, 12/13/2020. MAMMOGRAPHY TECHNIQUE: 2D and 3D (tomosynthesis) digital mammographic views obtained, with additional images as needed for full coverage. Current study was also evaluated with a Computer Aided Detection (CAD) system. DENSITY C. The breasts are heterogeneously dense, which may obscure small masses. MAMMOGRAPHY FINDINGS Left: An implanted director medical writing obscures a portion of the breast/axilla. Bilateral: No suspicious mass, asymmetry, microcalcification, or other abnormality seen. IMPRESSION: * No evidence of malignancy. RECOMMENDATIONS Bilateral * Annual screening mammography. OVERALL ASSESSMENT CATEGORY BI-RADS-1: Negative. The [place] [employer] recommends annual screening mammography beginning at age 40 for women with average risk of breast cancer. ELECTRONICALLY SIGNED: Uma Orellana M.D. on 09/26/2025 at 04:01:59 PM PT Interpreting Station ID: [id number]
--- NOTE | 2025-09-26 12:39 | ST.SWALLOW ---
Visit Care Team Role Provider Type SARI Roper Attending Provider Non-Staff Primary Care Provider Referring Provider Specialty: Family Practice Address: [address] [place] [address] [id number], [place], [address] Email: Modified Barium Swallow Study [employer]PER[employer]SELING [employer]UIDANCE Modified Barium Swallow Study Start: 09/26/25 11:36 Freq: Status: Active Protocol: Document 09/26/25 11:36 LNK (Rec: 09/26/25 12:39 LNK Desktop) Modified Barium Swallow Study Total Time Visit Start Time 10:00 Visit Stop Time 10:45 Total Visit Minutes [address] Veras Reason for Referral dysphagia Setting Setting Outpatient Care Patient Information Identification Type Name,Date of Patient History Pt was seen for a Modified Barium Swallow Study at the referral of Dr. Veras ([facility]). Pt c/o difficulty swallowing large pills, solids foods; specifically breads, potatoes and peanut butter. Pt described her swallow as feeling food get stuck in her throat (pointing to sternal notch). She noted that she drinks a lot of liquids when she eats. She also reported a lot of burping after meats. Pt denied a having GERD, a neurological diagnosis and/or any head neck injuries/surgeries. She stated that she has had swallow difficulties sporadically for years, but that it seems to be happening more frequently (e.g., every day). Subjective Pt was seated in the flouroscopy chair with directions Observations and procedures explained for him. He indicated he understood and agreed to proceed. Patient Positioning Position View Lat-A/P Imaging Lateral View The IDDSI Framework Protocol: IDDSI.1 Oral Impairment Source: The Modified Barium Swallow Impairment Profile (MBSImP??) Lip Closure No labial escape Tongue Control Cohesive bolus between tongue to palatal seal During Bolus Hold Bolus Preparation/ Timely & efficient chewing & mashing Mastication Bolus Transport/ Brisk tongue motion Lingual Motion Oral Residue Complete oral clearance Initiation of Bolus head in valleculae Pharyngeal Swallow Additional Oral Oral phase of swallow WNL Impairment *OME and DKS were observed to be WNL. Observations *Dentition natural and in good hygiene *Mastication observed with rotary chew pattern. *Good bolus formation, control and AP transition. *Velopharyngeal closure was WNL. Pharyngeal Impairment Source: The Modified Barium Swallow Impairment Profile (MBSImP??) Soft Palate No bolus between soft palate & pharyngeal wall Elevation Laryngeal Elevation Part.sup.move.thyroid cart/part.approx.arytenoids to epiglot.petiole Anterior Hyoid Partial anterior movement Excursion Epiglottic Movement Complete inversion Laryngeal Vestibular Complete; no air/contrast in laryngeal vestibule Closure Pharyngeal Stripping Present - complete Wave Pharyngoesophageal Complete distention & complete duration; no obstruction Segment Opening of flow Tongue Base No contrast between tongue base & posterior pharyngeal Retraction wall Pharyngeal Residue Complete pharyngeal clearance Additional Pharyngeal phase of swallow WNL Pharyngeal *Osteophytes observed on C4-C6 that altered the shape Impairment of the esophagus but did not interfere with bolus flow. Observations *Adequate hyolaryngeal elevation and movement *Complete epiglottal inversion *UES duration and extension adequate *Trace to no contrast residual within pharynx *NOTE: In the lateral position, contrast was observed during semisolid and solid trials in the upper esophagus A/P View Textures Administered Trials Presented Thin Liquid via Spoon (IDDSI 0) The IDDSI Framework Protocol: IDDSI.1 A/P View Observations Pharyngeal Complete Contraction Esophageal Clearance Esophageal retention w/regtrograde flow below Upright Position pharyngoesoph segment Vocal Fold Function Good Esophageal Function Reverse Peristalsis,Stasis Additional A-P Thin liquid, regular texture, and calibrated barium Observations tablet trial were observed: *Upon changing to AP position, observed moderate amount of esophageal retention from prior semisolid and solid trials *Retained contrast/bolus was noted to retro-flow from lower esophagus to the clavicular level (pt noted globus sensation). Retained contents were cleared with a few swallows of water. *A calibrated barium tablet was attempted. The pt could not swallow a tablet whole, but was able to successfully swallow half of a tablet with ease Esophagus was observed to be WNL. No hiatal hernia noted Clinical Impressions Findings *Oral and pharyngeal and esophageal swallow phases observed to be WFL Esophageal observations considered to be normal for pt's age *Esophageal phase demonstrated retention of solid and semisolid trial with retro-flow in upper esophagus (pt describing a sensation of globus). The globus sensation was noted to go away after swallows of water *The results and recommendations of the MBSS were described to the pt while observing still pictures taken during the MBSS. Pt was encouraged to slow her rate of intake, reduce distractions when eating and alternate fluids with solids during meals to prevent/ reduce stacking of solid foods. *Pt expressed appreciation and indicated she understood. All pt questions were addressed. Patient Appropriate No for Therapy Recommendations Diet Comments no diet changes recommended Aspiration Precautions Recommended Upright at 90 Degrees,Alternate Liquids/Solids,Frequent Precautions Rest Periods Treatment Plan Therapy Strategy Alternate Liquids/Solids Recommendations
== END ==
LOC: MAMMO 08:33
PROVIDERS: PCP Nurse Practitioner Family; Referring Provider Nurse Practitioner Family; Visit Provider Nurse Practitioner Family
DX: Z12.31 Encounter for screening mammogram for malignant neoplasm of breast (principal); R92.333 Mammographic heterogeneous density, bilateral breasts; Z80.3 Family history of malignant neoplasm of breast; R13.10 Dysphagia, unspecified
CPT/HCPCS: 74230; 77063; 77067; 92611

== ENCOUNTER → 2025-09-29 09:16 | Outpatient (CLI) | payer MEDICARE, OTHER, SELFPAY ==
--- NOTE | 2025-09-29 09:17 | DI.RAD.S_ITS ---
PROCEDURE: XR DEXA AXIAL SKELETON
== END ==
LOC: RAD 09:17
PROVIDERS: PCP Nurse Practitioner Family; Referring Provider Nurse Practitioner Family; Visit Provider Nurse Practitioner Family
DX: M81.0 Age-related osteoporosis without current pathological fracture (principal); Z78.0 Asymptomatic menopausal state; R13.10 Dysphagia, unspecified
CPT/HCPCS: 77080